=== PATIENT | male | born 1965 | race Caucasian/White ===

== ENCOUNTER → 2020-07-03 | Outpatient (CLI) | payer BC, OTHER ==
[~2020-07-03] MED LIST: LIDOCAINE 1% INJ 20 ML 20 ML VIAL INJ ONE; LIDOCAINE 1% INJ 20 ML 20 ML VIAL ONE
--- NOTE | 2020-07-03 12:15 | Diagnostic Imaging Report ---
INDICATION: Right lobe thyroid mass. Patient presents for ultrasound guided fine needle aspiration and biopsy. DETAILS OF THE PROCEDURE: The patient was brought to the procedure room and placed on the table in the supine position. Ultrasound imaging of the right neck was performed to evaluate for an appropriate entry site. The right neck was then prepped and draped in the usual sterile fashion. A small amount of 1% lidocaine was utilized for local anesthesia. A total of 4 passes was made into the hypoechoic mass in the inferior right lobe of the liver utilizing 25-gauge needles and fine-needle aspiration technique. A single pass was made with a Rotex needle and a Rotex biopsy was performed. The patient tolerated the procedure well and left the Department in stable condition. IMPRESSION: Successful ultrasound-guided right thyroid mass fine needle aspiration and Rotex biopsy. Pathology results are currently pending. Dictated by: Dictated on workstation # [id number]
== END ==
LOC: RAD 11:00
PROVIDERS: ATTEND Otolaryngology Otolaryngology/Facial Plastic Surgery
DX: E07.89 Other specified disorders of thyroid (principal)

== ENCOUNTER 2021-05-05 12:57 | Inpatient (IN) | payer OTHER ==
[~2021-05-05] VITALS: Ht 185.4 cm; Wt 155.1 kg
[2021-05-05] VITALS (13 sets, daily range): BP systolic 111–145; BP diastolic 57–87
--- NOTE | 2021-05-05 13:29 | ED Integumentary General ---
General Chief Complaint: Skin/Wound Problems Stated Complaint: GROIN ABCESS Source: patient Exam Limitations: no limitations History of Present Illness Date Seen by Provider: May 05, 2021 Time Seen by Provider: 13:20 Initial Comments Patient is a 56-year old male who presents to the emergency department with a chief complaint of abscess/infection to his scrotum. Patient states he first noticed the area of abscess on Wednesday, 4 days ago. Patient states he went to the emergency department in [facility]. He states the wound was draining at that time, a culture was obtained and he was placed on Bactrim. Patient states he was unable to fill the antibiotic prescription until yesterday and he has had 2 doses prior to today. He complains of "8 out of 10" pain. He is a diabetic on insulin. History of noncompliance. Patient presents with paperwork that shows his hemoglobin A1c is 12. Complains of some lower abdominal discomfort. Mild nausea without vomiting. No urinary complaints no GI complaints. Patient states he followed up with his primary care physician today in [place], was sent back to the ER where they advised him to come to [place] for definitive care of this abscess and infection. All other review of systems reviewed and negative except as stated. Timing/Duration: other (4d) Severity: moderate Location: genitalia Associated Symptoms: flushing, other (Diaphoresis, lower abdominal and groin pain) Allergies and Home Medications Allergies Coded Allergies: No Known Drug Allergies (Unverified , 07/03/20) Patient Home Medication List Home Medication List Reviewed: Yes Review of Systems Review of Systems Constitutional: see HPI, diaphoresis EENTM: no symptoms reported Respiratory: short of breath Cardiovascular: no symptoms reported Gastrointestinal: abdominal pain, nausea Genitourinary: other (Scrotal pain) Musculoskeletal: no symptoms reported Skin: other (Abscess left groin) Psychiatric/Neurological: No Symptoms Reported All Other Systems Reviewed Negative Unless Noted: Yes Past Wqgsatr-Kzgbsj-Srplye Hx Patient Social History Tobacco Use?: Yes Tobacco type used: Cigarettes Smoking Status: Current Everyday Smoker Use of E-Cig and/or Vaping dev: No Substance use?: Yes Substance type: Methamphetamine, Marijuana Substance frequency: Once in a while Alcohol Use?: Yes Alcohol type: Hard Liquor Alcohol Frequency: Once in a while Pt feels they are or have been: No Immunizations Up To Date Influenza Vaccine Up-to-Date: No; Not Current Second COVID19 Vaccination Renzo: 04/22 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: [employer] Physical Exam Vital Signs Vital Signs - First Documented 05/05/21 13:05 Temp 37.0 Pulse 104 Resp 24 B/P (MAP) 173/79 (110) Pulse Ox 98 O2 Delivery Room Air Capillary Refill : General Appearance: WD/WN, moderate distress HEENT: other (Dry oral mucosa) Neck: normal inspection Cardiovascular: regular rate, rhythm Respiratory: lungs clear, normal breath sounds, no respiratory distress, no accessory muscle use Gastrointestinal: soft, abnormal bowel sounds (Hypoactive), tenderness (Diffuse lower abdominal tenderness without rebound or involuntary guarding) Extremities: normal range of motion, normal inspection, no pedal edema Neurologic/Psychiatric: alert Skin: diaphoresis, other (Patient has an area of "abscess" on the lateral aspect of the left scrotum ( about a quarter sized in diameter - no active drainage) significant surrounding erythema edema; edema extends to the perineum; very tender to palpation erythema extends into the proximal thigh) Skin Problem Character: abscess Progress/Results/Core Measures Results/Orders Lab Results Laboratory Tests Test 05/05/21 13:20 05/05/21 13:40 Range/Units Glucometer 393 H 70-110 MG/DL White Blood Count 11.5 H 4.3-11.0 10^3/uL Red Blood Count 5.41 4.30-5.52 10^6/uL Hemoglobin 16.1 13.3-17.7 g/dL Hematocrit 47 40-54 % Mean Corpuscular Volume 87 80-99 fL Mean Corpuscular Hemoglobin 30 25-34 pg Mean Corpuscular Hemoglobin Concent 34 32-36 g/dL Red Cell Distribution Width 12.8 10.0-14.5 % Platelet Count 202 130-400 10^3/uL Mean Platelet Volume 10.8 9.0-12.2 fL Immature Granulocyte % (Auto) 1 % Neutrophils (%) (Auto) 78 H 42-75 % Lymphocytes (%) (Auto) 11 L 12-44 % Monocytes (%) (Auto) 9 0-12 % Eosinophils (%) (Auto) 2 0-10 % Basophils (%) (Auto) 0 0-10 % Neutrophils # (Auto) 9.0 H 1.8-7.8 10^3/uL Lymphocytes # (Auto) 1.2 1.0-4.0 10^3/uL Monocytes # (Auto) 1.0 0.0-1.0 10^3/uL Eosinophils # (Auto) 0.2 0.0-0.3 10^3/uL Basophils # (Auto) 0.1 0.0-0.1 10^3/uL Immature Granulocyte # (Auto) 0.1 0.0-0.1 10^3/uL Prothrombin Time 12.9 12.2-14.7 SEC INR Comment 0.9 0.8-1.4 Activated Partial Thromboplast Time 24 24-35 SEC Sodium Level 131 L 135-145 MMOL/L Potassium Level 3.6 3.6-5.0 MMOL/L Chloride Level 95 L 98-107 MMOL/L Carbon Dioxide Level 23 21-32 MMOL/L Anion Gap 13 5-14 MMOL/L Blood Urea Nitrogen 23 H 7-18 MG/DL Creatinine 1.33 H 0.60-1.30 MG/DL Estimat Glomerular Filtration Rate 56 BUN/Creatinine Ratio 17 Glucose Level 425 *H 70-105 MG/DL Lactic Acid Level 2.02 *H 0.50-2.00 MMOL/L Calcium Level 9.6 8.5-10.1 MG/DL Corrected Calcium 9.7 8.5-10.1 MG/DL Total Bilirubin 0.3 0.1-1.0 MG/DL Aspartate Amino Transf (AST/SGOT) 12 5-34 U/L Alanine Aminotransferase (ALT/SGPT) 19 0-55 U/L Alkaline Phosphatase 211 H 40-136 U/L Total Protein 7.6 6.4-8.2 GM/DL Albumin 3.9 3.2-4.5 GM/DL Micro Results Microbiology 05/05/21 Blood Culture - Preliminary, Resulted No growth 05/05/21 Blood Culture - Preliminary, Resulted No growth My Orders Orders - JOSH URIAS MD Cbc With Automated Diff (05/05/21 13:26) Comprehensive Metabolic Panel (05/05/21 13:26) Blood Culture (05/05/21 13:26) Urinalysis (05/05/21 13:26) Protime With Inr (05/05/21 13:26) Partial Thromboplastin Time (05/05/21 13:26) Chest 1 View, Ap/Pa Only (05/05/21 13:26) Ed Iv/Invasive Line Start (05/05/21 13:26) Ed Iv/Invasive Line Start (05/05/21 13:26) Vital Signs Adult Sepsis Patie Q15M (05/05/21 13:26) O2 (05/05/21 13:26) Remove Rings In Anticipation O (05/05/21 13:26) Lactic Acid Analyzer (05/05/21 13:26) Ns Iv 1000 Ml (Sodium Chloride 0.9%) (05/05/21 13:30) Vancomycin Injection (Vancomycin Injecti (05/05/21 13:45) Clindamycin 600 Mg/50 Ml Ivpb (Cleocin P (05/05/21 13:45) Fentanyl Inj (Sublimaze Injection) (05/05/21 13:45) Type And Screen (05/05/21 13:43) Platelet Pheresis Lr (05/05/21 13:43) Medications Given in ED Vital Signs/I&O 05/05/21 13:05 Temp 37.0 Pulse 104 Resp 24 B/P (MAP) 173/79 (110) Pulse Ox 98 O2 Delivery Room Air Progress Progress Note : Time: 13:35 Progress Note DIscussed with Dr Silver, will be down to see 1351 prepping patient for the OR. asked for 1u platelets (secondary to plavix); NPO status - a bottle of water on the drive down to here from [place]. 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 Referrals: YANNI GAMING MD (PCP/Family) Primary Care Physician JOSH URIAS MD May 05, 2021 13:29
[2021-05-05] MEDS ORDERED: NS IV 1000 ML 1,000 ML IV SCH (13:30)
[2021-05-05] MEDS ORDERED: fentaNYL INJ 100 MCG/2 ML AMP IVP ONE ×2 (13:45→16:15)
[2021-05-05] MEDS ORDERED: VANCOMYCIN INJECTION 1,000 MG in NS (IVPB) 250 ML IV ONE (13:45)
[2021-05-05] MEDS ORDERED: CLINDAMYCIN 600 MG/50 ML IVPB 50 ML IV ONE (13:45)
--- NOTE | 2021-05-05 13:57 | History & Physical-Surgical ---
MELODYKEISHABENJAMÍN A MED STUDENT 05/05/21 1357: History of Present Illness History of Present Illness Reason for visit/HPI 56 yo male who presented to ED for left groin swelling for the last few days. Pt was seen in ED last week and told to f/u with PCP this morning. PCP advised pt to go to ED this morning. Pt reports left groin/scrotal swelling and pain with abdominal pain as well. Pt has hx of diabetes, HTN, stroke with anticoagulant use and meth/marjiuana abuse. Pt last used drugs yesterday. Date of Admission Date Seen by a Provider: May 05, 2021 Time Seen by a Provider: 13:45 I consulted on this patient on 05/05/21 13:49 Attending Physician Admitting Physician Luis Eduardo Bragg MD Consult Allergies and Home Medications Allergies Coded Allergies: No Known Drug Allergies (Unverified , 07/03/20) Past Flukzgf-Hzlgvq-Xmgtga Hx Patient Social History Tobacco Use?: Yes Tobacco type used: Cigarettes Smoking Status: Current Everyday Smoker Use of E-Cig and/or Vaping dev: No Substance use?: Yes Substance type: Methamphetamine, Marijuana Substance frequency: Once in a while Alcohol Use?: Yes Alcohol type: Hard Liquor Alcohol Frequency: Once in a while Pt feels they are or have been: No Immunizations Up To Date Second COVID19 Vaccination Renzo: 04/22 Tetanus Booster (TDap): Unknown Current Status Advance Directives: No Primary Language: Bahamian Preferred Spoken Language: Bahamian Implanted or Applied Medical D: None Review of Systems Gastrointestinal: abdominal pain Skin: change in color (erythema/edema of left scrotum) Physical Exam Vital Signs Vital Signs - First Documented 05/05/21 13:05 Temp 37.0 Pulse 104 Resp 24 B/P (MAP) 173/79 (110) Pulse Ox 98 O2 Delivery Room Air Capillary Refill : Less Than 3 Seconds Height, Weight, BMI Height: '" Weight: lbs. oz. kg; 43.00 BMI Method: General Appearance: Moderate Distress HEENT: PERRL/EOMI Gastrointestinal: Tenderness Genital/Rectal: Other (erythema and edema of scrotum with ulceration on left scrotal region) Neurologic/Psychiatric: Alert, Oriented x3, No Motor/Sensory Deficits, Normal Mood/Affect, sisal operator II-XII Norm as Tested Skin: Diaphoresis Data Review Labs Laboratory Tests 05/05/21 13:20: Glucometer 393H 05/05/21 13:40: White Blood Count 11.5H, Red Blood Count 5.41, Hemoglobin 16.1, Hematocrit 47, Mean Corpuscular Volume 87, Mean Corpuscular Hemoglobin 30, Mean Corpuscular Hemoglobin Concent 34, Red Cell Distribution Width 12.8, Platelet Count 202, Mean Platelet Volume 10.8, Immature Granulocyte % (Auto) 1, Neutrophils (%) (Auto) 78H, Lymphocytes (%) (Auto) 11L, Monocytes (%) (Auto) 9, Eosinophils (%) (Auto) 2, Basophils (%) (Auto) 0, Neutrophils # (Auto) 9.0H, Lymphocytes # (Auto) 1.2, Monocytes # (Auto) 1.0, Eosinophils # (Auto) 0.2, Basophils # (Auto) 0.1, Immature Granulocyte # (Auto) 0.1, Prothrombin Time 12.9, INR Comment 0.9, Activated Partial Thromboplast Time 24, Sodium Level 131L, Potassium Level 3.6, Chloride Level 95L, Carbon Dioxide Level 23, Anion Gap 13, Blood Urea Nitrogen 23H, Creatinine 1.33H, Estimat Glomerular Filtration Rate 56, BUN/Creatinine Ratio 17, Glucose Level 425*H, Lactic Acid Level 2.02*H, Calcium Level 9.6, Corrected Calcium 9.7, Total Bilirubin 0.3, Aspartate Amino Transf (AST/SGOT) 12, Alanine Aminotransferase (ALT/SGPT) 19, Alkaline Phosphatase 211H, Total Protein 7.6, Albumin 3.9 Assessment/Plan Assessment/Plan Admission Diagonsis Juanjo Gangrene Reason for Inpatient Admission: Juanjo Gangrene Assessment/Plan Juanjo Gangrene Hx of stroke with anticoagulation HTN Diabetes Juanjo's Gangrene of Left Scrotum -Will take to OR for debridement and all other indicated procedures Hx of stroke with anticoagulation therapy -Platelets ordered by ED physician HTN -Will monitor with help of hospitalist, appreciate their assistance Diabetes -Will monitor with help of hospitalist, appreciate their assistance Methamphetamine and Marijuana abuse Obesity Discussed urgency of this matter with pt and he consented to procedure PHILIP SILVER DO 05/05/211911: History of Present Illness History of Present Illness Reason for visit/HPI Chief complaint left groin pain/abscess Patient is a 56-year-old male who presented to the [place] emergency department on Wednesday for evaluation of a left groin abscess. At that time he states he was given prescription for antibiotics but he did not start taking them till yesterday. He was told to follow-up with his primary care doctor. He followed up with his primary care doctor today who informed patient to go to the emergency department in [place] for further evaluation. Patient having moderate to severe pain in the left groin area. Patient states nothing was ma russel it better. Time was making it worse. Patient states he had increased redness and swelling. Patient is diabetic which he states he has not had control of his blood sugars recently. Patient states that his birthday was yesterday and was using marijuana and meth. He has a history of a stroke which she is on Plavix for. Patient is diaphoretic not feeling well he denies any n ausea vomiting fever chills shortness of breath or chest pain at this time. Allergies and Home Medications Allergies Coded Allergies: No Known Drug Allergies (Unverified , 07/03/20) Patient Home Medication List Home Medication List Reviewed: Yes Past Ckmtour-Zieydh-Atypab Hx Past Medical History Surgeries: Orthopedic Hypertension Stroke Diabetes, Non-Insulin dep Review of Systems Constitutional: No chills; diaphoresis EENTM: No blurred vision, No double vision Respiratory: No cough, No dyspnea on exertion Gastrointestinal: abdominal pain (Left groin); No nausea, No vomiting Genitourinary: No discharge; pain (Left groin) Musculoskeletal: No back pain, No joint pain Skin: change in color (erythema/edema of left scrotum and into left groin), lumps Psychiatric/Neurological: Denies Anxiety, Denies Depressed, Denies Emotional P roblems All Other Systems Reviewed Negative Unless Noted: Yes (Negative excepted noted.) Physical Exam General Appearance: Mild Distress HEENT: PERRL/EOMI, Normal ENT Inspection Neck: Non Tender, Supple Respiratory: Chest Non Tender, No Accessory Muscle Use, No Respiratory Distress Cardiovascular: No JVD, Tachycardia Gastrointestinal: Non Tender, Soft, Tenderness (Left groin) Rectal: Deferred Genital/Rectal: Other (erythema and edema of scrotum with ulceration on left groin region and patient with significant induration in this area some fl uctuance) Back: No CVA Tenderness, No Vertebral Tenderness Extremity: Normal Inspection, Non Tender Neurologic/Psychiatric: Oriented x3, No Motor/Sensory Deficits, Normal Mood/Affect, sisal operator II-XII Norm as Tested Skin: Warm/Dry, Diaphoresis Lymphatic: No Adenopathy Assessment/Plan Assessment/Plan Admission Diagonsis Juanjo gangrene left groin Diabetes Hypertension Methamphetamine and marijuana use History of stroke on antiplatelet Admission Status: Inpatient Order (span 2 midnights) Reason for Inpatient Admission: Patient will need surgical intervention continued IV antibiotics and continued monitoring which will be a span of greater than 2 midnights. Assessment/Plan Juanjo gangrene left groin Diabetes Hypertension Methamphetamine and marijuana use History of stroke on antiplatelet Obesity Patient with suspected Juanjo's gangrene on physical exam. Patient n.p.o. and given IV fluids. Patient started on antibiotics will be on vancomycin Zosyn clindamycin and Flagyl Needs to be emergently debrided which patient understands risk and benefits of and wishes to proceed. Patient will need wound care postoperatively. Patient may need further surgical intervention if continues to have necrotic tissue or concerns for. Tight glucose control. Will consult the hospitalist service and tele-ICU postoperatively. Supervisory-Addendum Brief Verification & Attestation Participated in pt care: history, MDM, physical Personally performed: exam, history, MDM, supervision of care Care discussed with: Medical Student Procedures: n/a Results interpretation: Verified all documentation Verification and Attestation of Medical Student E/M Service A medical student performed and documented this service in my presence. I reviewed and verified all information documented by the medical student and made modifications to such information, when appropriate. I personally performed the physical exam and medical decision making. Philip Silver, May 05, 2021,13:59 BENJAMÍN SEARS MED STUDENT May 05, 2021 13:57 PHILIP SILVER DO May 05, 2021 19:12
[2021-05-05 13:58] LABS: BASOPHILS # (AUTO) 0.1 10^3/uL (0.0-0.1); BASOPHILS % (AUTO) 0 % (0-10); EOSINOPHILS # (AUTO) 0.2 10^3/uL (0.0-0.3); EOSINOPHILS % (AUTO) 2 % (0-10); HEMATOCRIT 47 % (40-54); HEMOGLOBIN 16.1 g/dL (13.3-17.7); LYMPHOCYTES # (AUTO) 1.2 10^3/uL (1.0-4.0); LYMPHOCYTES % (AUTO) 11 % (12-44); MEAN CORPUSCULAR HEMOGLOBIN 30 pg (25-34); MEAN CORPUSCULAR HGB CONC 34 g/dL (32-36); MEAN CORPUSCULAR VOLUME 87 fL (80-99); MEAN PLATELET VOLUME 10.8 fL (9.0-12.2); MONOCYTES % (AUTO) 9 % (0-12); NEUTROPHILS % (AUTO) 78 % (42-75); PLATELET COUNT 202 10^3/uL (130-400); WHITE BLOOD COUNT 11.5 10^3/uL (4.3-11.0)
[2021-05-05] MEDS ORDERED: LACTATED RINGERS 1,000 ML IV PRN (14:00)
[2021-05-05 14:10] LABS: ALBUMIN 3.9 GM/DL (3.2-4.5); POTASSIUM 3.6 MMOL/L (3.6-5.0)
[2021-05-05 14:11] LABS: CALCIUM 9.6 MG/DL (8.5-10.1); INR 0.9 (0.8-1.4); PROTHROMBIN TIME PATIENT 12.9 SEC (12.2-14.7)
[2021-05-05 14:12] LABS: TOTAL PROTEIN 7.6 GM/DL (6.4-8.2)
[2021-05-05 14:14] LABS: BILIRUBIN,TOTAL 0.3 MG/DL (0.1-1.0)
[2021-05-05 14:16] LABS: CREATININE SERUM 1.33 MG/DL (0.60-1.30)
[2021-05-05] MEDS ORDERED: LIDOCAINE PF 2% 5 ML (XYLOCAINE) VIAL ONE (14:17)
[2021-05-05] MEDS ORDERED: ROCURONIUM 10 MG/ML 5 ML SYRINGE IV ONE (14:17)
[2021-05-05] MEDS ORDERED: fentaNYL INJ 100 MCG/2 ML AMP ONE ×2 (14:17→15:42)
[2021-05-05] MEDS ORDERED: ONDANSETRON 4 MG/2 ML (SDV) Z0FRAN ONE (14:17)
[2021-05-05] MEDS ORDERED: NEOSTIGMINE 3 MG/3 ML VIAL ONE (14:17)
[2021-05-05] MEDS ORDERED: GLYCOPYRROLATE 0.2 MG/ML (ROBINUL) 2 ML VIAL ONE (14:17)
[2021-05-05] MEDS ORDERED: proPOfol 200 MG/20 ML (DIPRIVAN) VIAL IV ONE (14:17)
[2021-05-05] MEDS ORDERED: MIDAZOLAM 2 MG/2 ML (VERSED) VIAL ONE (14:18)
[2021-05-05] MEDS ORDERED: LIDOCAINE/EPI 1%-1:100,000 (XYLOCAINE) 20ML ONE (14:18)
[2021-05-05] MEDS ORDERED: SUCCINYLCHOLINE INJ 100 MG/5 ML SYR/VIAL ONE (14:23)
--- NOTE | 2021-05-05 14:33 | Diagnostic Imaging Report ---
EXAMINATION: Chest, one view. HISTORY: Sepsis. Groin abscess. COMPARISON: 11/18/2019. FINDINGS: The lung volumes are normal. No focal consolidation is seen. No large pleural effusion or pneumothorax is seen. The cardiomediastinal silhouette is normal in size and contour. No acute osseous abnormality is seen. IMPRESSION: 1. No acute pleural-parenchymal process. Dictated by: Dictated on workstation # [id number]
[2021-05-05] MEDS ORDERED: VANCOMYCIN INJECTION 0.1 MG in NS (IVPB) 250 ML IV SCH (16:00)
[2021-05-05] MEDS ORDERED: PIPERACILLIN/TAZOBACTAM (BULK) 4.5 GM in NS (IVPB) 100 ML IV SCH (16:00)
[2021-05-05] MEDS ORDERED: MEPERIDINE (DEMEROL) INJ 50 MG/ML IVP ONE (16:15)
[2021-05-05] MEDS ORDERED: ONDANSETRON 4 MG/2 ML (SDV) Z0FRAN IVP PRN (16:15)
[2021-05-05] MEDS: LACTATED RINGERS 1,000 ML IV SCH (16:32)
[2021-05-05] MEDS ORDERED: PIPERACILLIN/TAZO 4.5 GM/NS 100 ML IV NR ×2 (17:30)
[2021-05-05] MEDS ORDERED: VANCOMYCIN 1 GM/NS 250 ML IVPB IV NR ×2 (17:30)
[2021-05-05] MEDS ORDERED: inSUlin ASPART (NovoLOG) 1 UNIT/0.01 ML (CHARGE PER UNIT) ONE (18:15)
[2021-05-05] MEDS: inSUlin ASPART (NovoLOG) 1 UNIT/0.01 ML (CHARGE PER UNIT) SC SCH ×2 (18:18→20:10)
--- NOTE | 2021-05-05 18:47 | Tele-ICU Consult ---
History of Present Illness History of Present Illness Date Seen by Provider: May 05, 2021 Time Seen by Provider: 17:30 Date of Admission Allergies and Home Medications Allergies Coded Allergies: No Known Drug Allergies (Unverified , 07/03/20) Past Medical/Social/Family Hx Patient Social History Tobacco Use?: Yes Tobacco type used: Cigarettes Smoking Status: Current Everyday Smoker Use of E-Cig and/or Vaping dev: No E-Cig or Vaping type used: Marijuana Substance use?: Yes Substance type: Methamphetamine Substance frequency: Daily Alcohol Use?: Yes Alcohol type: Hard Liquor Alcohol Frequency: Couple times a week Pt stated abuse/neglect: No Immunizations Up To Date Influenza Vaccine Up-to-Date: Yes; Up-to-Date First/Initial COVID19 Vaccinat: 04/22 Second COVID19 Vaccination Renzo: 04/22 Tetanus Booster (TDap): Unknown Current Status Advance Directives: No Communicates: Verbally Primary Language: Sinhala Preferred Spoken Language: Sinhala Is interpretation needed?: No Implanted or Applied Medical D: None Review of Systems Constitutional: see HPI Sepsis Event Evaluation Height, Weight, BMI Height: '" Weight: lbs. oz. kg; 43.52 BMI Method: Exam Exam Patient acknowledged, consented, and participated in this virtual visit which was conducted using real time audio/video Vital Signs Date Time Temp Pulse Resp B/P (MAP) Pulse Ox O2 Delivery O2 Flow Rate FiO2 05/05/21 18:00 95 22 130/78 (95) 94 Nasal Cannula 2.00 05/05/21 17:00 92 05/05/21 17:00 92 23 111/78 (89) 95 Nasal Cannula 2.00 05/05/21 16:40 OxyMask 2 05/05/21 16:40 36.3 18 135/80 (98) 93 OxyMask 2 05/05/21 16:32 OxyMask 2 05/05/21 16:30 18 124/87 (99) 96 OxyMask 2 05/05/21 16:27 OxyMask 2 05/05/21 16:25 OxyMask 2 05/05/21 16:20 OxyMask 2 05/05/21 16:20 18 125/73 (90) 94 OxyMask 2 05/05/21 16:16 OxyMask 4 05/05/21 16:10 OxyMask 6 05/05/21 16:10 18 132/75 (94) 94 OxyMask 6 05/05/21 16:07 18 121/79 (93) 94 OxyMask 6 05/05/21 15:58 36.6 16 113/80 (91) 97 OxyMask 6 05/05/21 15:58 OxyMask 6 05/05/21 14:41 102 24 131/84 98 Room Air 05/05/21 13:05 37.0 104 24 173/79 (110) 98 Room Air Height & Weight Height: '" Weight: lbs. oz. kg; 43.52 BMI Method: General Appearance: No Apparent Distress, Moderate Distress HEENT: PERRL/EOMI Capillary Refill: Less Than 3 Seconds Gastrointestinal: soft, abnormal bowel sounds (Hypoactive), tenderness (Diffuse lower abdominal tenderness without rebound or involuntary guarding) Neurologic/Psychiatric: Alert, Oriented x3, No Motor/Sensory Deficits, Normal Mood/Affect, muskrat trapper II-XII Norm as Tested Skin: Diaphoresis Results Lab Laboratory Tests 05/05/21 13:40 Assessment/Plan Assessment/Plan (Tele-ICU Physician , consultation) Available chart/ vitals / labs / Images reviewed H&P is from ER notes Patient's information available about PMH, Shx, Fhx allergy reviewed in EMR. ROS as per chart and RN report Now in ICU, hemodynamically stable Video assessment done using teleICU camera, rest of exam as per RN Discussed with RN. Consultants: DONTE Hospital course: 05/05 - ER: abscess/infection to his scrotum. --> s/p I& D left groin A/P Juanjo Gangrene - - report pending - cont zosyn - pain control Acute resp failure - hypoxia post op with low TV - will initiate IS and CPAP at night DM II , poorly controlled , as per records -hemoglobin A1c is 12. - ISS for now JANA - CPAP at home , noncompliant - will be beneficial at night h/o CVA - plavix on hold , PLT transfused Lines : peroph (Central Line Necessity Reviewed) Cutler: OG: Nutrition: Analgesia: Anxiety/ delirium VTE Prophylaxis: SCD Stress Ulcer Prophylaxis: Po Plans in collaboration with bedside consultants and IM MDs. Discussed with RN to reach out if any questions or concerns A total of 35 minutes of critical care time was devoted to this patient today, required to treat and/or prevent further deterioration of critical care co ndition ( as above ) . ERASMO ROJAS MD May 05, 2021 18:47
--- NOTE | 2021-05-05 20:31 | Progress Note-Post Operative ---
Post-Operative Progess Note Surgeon (s)/Sports Equipment Supervisor (s) Surgeon PHILIP OROZCO DO Sports Equipment Supervisor: na Pre-Operative Diagnosis Juanjo gangrene left groin Post-Operative Diagnosis Same Procedure & Operative Findings Date of Procedure 05/05/21 Procedure Performed/Findings Debridement left groin juanjo gangrene skin and subcutaneous tissue and muscle sharp and cautery dissection 9x3.5.4.5cm Anesthesia Type general Estimated Blood Loss Estimated blood loss (mL): minimal Specimens/Packing Specimens Removed culture PHILIP OROZCO DO May 05, 2021 20:31
[2021-05-05] MEDS ORDERED: inSUlin ASPART (NovoLOG) 1 UNIT/0.01 ML (CHARGE PER UNIT) SC SCH (21:00)
--- NOTE | 2021-05-05 22:36 | OPERATIVE REPORT ---
DATE OF SERVICE: 05/05/2021 PREOPERATIVE DIAGNOSIS: Juanjo's gangrene, left groin. POSTOPERATIVE DIAGNOSIS: Juanjo's gangrene, left groin. PROCEDURE: Debridement left groin Juanjo's gangrene skin, subcutaneous tissue and muscle with sharp and cautery dissection. Overall, dimensions 9 x 3.5 x 4.5 cm. SURGEON: Federico Silver DO ANESTHESIA: General. ESTIMATED BLOOD LOSS: Minimal. COMPLICATIONS: None. INDICATIONS: The patient is a 56-year-old male who had an area to the left groin that he seeks evaluation in the Emergency Department last Wednesday. He was started on antibiotics at that time; however, did start until yesterday and he had followup with his primary care doctor today for reevaluation. The patient was told to go to the Emergency Department today after being evaluated. The patient on examination appears to have Juanjo's gangrene and was explained risks and benefits of procedure and wishes to proceed. Consent was signed in the chart. DESCRIPTION OF PROCEDURE: The patient was taken to the operating suite, placed in lithotomy position, prepped and draped in sterile fashion. Timeout was performed. A 15 blade scalpel was used to excise the necrotic skin area and some air started to erupt from this area along with some grayish slightly purulent-appearing material. Culture was obtained. Finger dissection was then used to bluntly dissect through the plane of tissue and the skin and subcutaneous tissues and some muscles were debrided. All loculations were being broken up. Any necrotic appearing tissue was excised. This extended in the left groin near the scrotum all the way up towards the left groin. Once all ischemic appearing tissue had been removed. The wound was then irrigated with copious amounts of irrigation. Hemostasis was achieved. The wound was then packed with Betadine soaked Kerlix and the area was washed and dried and sterile bandage was applied. The patient tolerated procedure well without any complications, taken to recovery room in stable condition. RECOMMENDATIONS: The patient will be continually monitored and may need further excision that process continues to advance. CC: Dr. Bragg - requested, unable to deliver. Job ID: [id number] DocumentID: [id number] Dictated Date: 05/05/2021 20:36:03 Bird Trapper Date: 05/05/2021 22:35:13 Dictated By: FEDERICO SILVER DO
[2021-05-05] MEDS: CLINDAMYCIN 900 MG/50 ML IVPB 50 ML IV SCH (23:28)
[2021-05-05] MEDS: PIPERACILLIN/TAZO 4.5 GM/NS 100 ML IV SCH ×2 (23:55)
[2021-05-06] VITALS (24 sets, daily range): BP systolic 124–198; BP diastolic 58–112
[2021-05-06] MEDS: LACTATED RINGERS 1,000 ML IV SCH ×2 (02:49→10:07)
[2021-05-06 04:41] LABS: BASOPHILS # (AUTO) 0.1 10^3/uL (0.0-0.1); BASOPHILS % (AUTO) 1 % (0-10); EOSINOPHILS # (AUTO) 0.2 10^3/uL (0.0-0.3); EOSINOPHILS % (AUTO) 2 % (0-10); HEMATOCRIT 43 % (40-54); HEMOGLOBIN 14.2 g/dL (13.3-17.7); LYMPHOCYTES # (AUTO) 0.9 10^3/uL (1.0-4.0); LYMPHOCYTES % (AUTO) 9 % (12-44); MEAN CORPUSCULAR HEMOGLOBIN 29 pg (25-34); MEAN CORPUSCULAR HGB CONC 33 g/dL (32-36); MEAN CORPUSCULAR VOLUME 89 fL (80-99); MEAN PLATELET VOLUME 10.5 fL (9.0-12.2); MONOCYTES # (AUTO) 0.9 10^3/uL (0.0-1.0); MONOCYTES % (AUTO) 8 % (0-12); NEUTROPHILS # (AUTO) 8.6 10^3/uL (1.8-7.8); NEUTROPHILS % (AUTO) 80 % (42-75); PLATELET COUNT 198 10^3/uL (130-400); WHITE BLOOD COUNT 10.7 10^3/uL (4.3-11.0)
[2021-05-06 04:52] LABS: ALBUMIN 3.3 GM/DL (3.2-4.5); POTASSIUM 3.7 MMOL/L (3.6-5.0)
[2021-05-06 04:54] LABS: CALCIUM 8.6 MG/DL (8.5-10.1)
[2021-05-06 04:55] LABS: TOTAL PROTEIN 6.3 GM/DL (6.4-8.2)
[2021-05-06 04:57] LABS: BILIRUBIN,TOTAL 0.4 MG/DL (0.1-1.0)
[2021-05-06 04:58] LABS: PHOSPHORUS 3.1 MG/DL (2.3-4.7)
[2021-05-06 04:59] LABS: CREATININE SERUM 0.83 MG/DL (0.60-1.30)
[2021-05-06 05:01] LABS: MAGNESIUM 1.8 MG/DL (1.6-2.4)
[2021-05-06] MEDS: MAGNESIUM 1 GM/100 ML IVPB 100 ML IV SCH (05:25)
[2021-05-06] MEDS: KCL 20 MEQ TAB (K-DUR) PO SCH (05:25)
[2021-05-06] MEDS: POTASSIUM CL 10MEQ/50ML IVPB 50 ML IV SCH (05:25)
[2021-05-06] MEDS: inSUlin ASPART (NovoLOG) 1 UNIT/0.01 ML (CHARGE PER UNIT) SC SCH ×4 (05:25→22:16)
[2021-05-06] MEDS: CLINDAMYCIN 900 MG/50 ML IVPB 50 ML IV SCH ×3 (05:58→22:19)
[2021-05-06] MEDS: VANCOMYCIN 2000 MG/NS 500 ML IVPB IV SCH ×4 (05:58→17:11)
--- NOTE | 2021-05-06 07:43 | Progress Note - Surgery ---
BENJAMÍN SEARS A MED STUDENT 05/06/21 0743: Subjective Date Seen by a Provider: May 06, 2021 Time Seen by a Provider: 07:20 Subjective/Events-last exam Pt was asleep in bed this morning, but easy to wake. Pt reports he feels better than yesterday and denies any pain. Pt complains of some lower leg cramps and requests ice water. Denies fever, chills, SOA, chest pain or dysuria. Review of Systems General: No Chills, No Fatigue Pulmonary: No Dyspnea, No Cough Cardiovascular: No: Chest Pain, Palpitations Gastrointestinal: No: Nausea, Vomiting, Abdominal Pain, Diarrhea, Constipation Genitourinary: No Dysuria, No Frequency Neurological: No: Weakness, Numbness Focused Exam Lactate Level 05/05/21 13:40: Lactic Acid Level 2.02*H 05/05/21 17:25: Lactic Acid Level 1.39 Objective Exam Vital Signs Date Time Temp Pulse Resp B/P (MAP) Pulse Ox O2 Delivery O2 Flow Rate FiO2 05/06/21 06:00 98 16 179/92 (121) 94 Nasal Cannula 2.00 05/06/21 05:00 99 17 134/58 (83) 97 Nasal Cannula 2.00 05/06/21 04:43 36.4 05/06/21 04:00 97 Nasal Cannula 2.00 05/06/21 04:00 92 15 124/67 (86) 96 Nasal Cannula 2.00 05/06/21 03:00 93 17 158/79 (105) 94 Nasal Cannula 2.00 05/06/21 02:00 96 17 140/78 (98) 94 Nasal Cannula 2.00 05/06/21 01:00 97 05/06/21 01:00 97 16 158/76 (103) 96 Nasal Cannula 2.00 05/06/21 00:01 36.8 05/06/21 00:00 95 18 136/85 (102) 97 Nasal Cannula 2.00 05/05/21 23:59 97 Nasal Cannula 2.00 05/05/21 23:00 94 19 133/69 (90) 94 Nasal Cannula 2.00 05/05/21 22:00 92 18 145/69 (94) 95 Nasal Cannula 2.00 05/05/21 21:00 97 14 141/67 (91) 92 Nasal Cannula 2.00 05/05/21 20:33 37.1 05/05/21 20:02 36.6 05/05/21 20:00 96 20 133/57 (82) 96 Nasal Cannula 2.00 05/05/21 20:00 97 Nasal Cannula 2.00 05/05/21 19:00 98 13 133/68 (89) 95 Nasal Cannula 2.00 05/05/21 19:00 98 05/05/21 18:00 95 22 130/78 (95) 94 Nasal Cannula 2.00 05/05/21 17:00 92 05/05/21 17:00 92 23 111/78 (89) 95 Nasal Cannula 2.00 05/05/21 16:45 92 Nasal Cannula 2.00 05/05/21 16:40 OxyMask 2 05/05/21 16:40 36.3 18 135/80 (98) 93 OxyMask 2 05/05/21 16:32 OxyMask 2 05/05/21 16:30 18 124/87 (99) 96 OxyMask 2 05/05/21 16:27 OxyMask 2 05/05/21 16:25 OxyMask 2 05/05/21 16:20 OxyMask 2 05/05/21 16:20 18 125/73 (90) 94 OxyMask 2 05/05/21 16:16 OxyMask 4 05/05/21 16:10 OxyMask 6 05/05/21 16:10 18 132/75 (94) 94 OxyMask 6 05/05/21 16:07 18 121/79 (93) 94 OxyMask 6 05/05/21 15:58 36.6 16 113/80 (91) 97 OxyMask 6 05/05/21 15:58 OxyMask 6 05/05/21 14:41 102 24 131/84 98 Room Air 05/05/21 13:05 37.0 104 24 173/79 (110) 98 Room Air I & O 05/06/21 07:00 Intake Total 870 ml Output Total 2000 ml Balance -1130 ml Capillary Refill : Less Than 3 Seconds General Appearance: No Apparent Distress, WD/WN HEENT: PERRL/EOMI, Normal ENT Inspection Neck: Non Tender, Supple Respiratory: Chest Non Tender, Lungs Clear, Normal Breath Sounds, No Accessory Muscle Use, No Respiratory Distress Cardiovascular: Regular Rate, Rhythm, No Edema, No JVD, Normal Peripheral Pulses Gastrointestinal: normal bowel sounds, non tender, soft Extremity: Normal Inspection, Non Tender Neurologic/Psychiatric: Alert, Oriented x3, No Motor/Sensory Deficits, Normal 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, 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 as 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 Skin: Normal Color, Warm/Dry, Other (scrotal erythema) Lymphatic: No Adenopathy Results Lab Laboratory Tests 05/05/21 13:20: Glucometer 393H 05/05/21 13:40: White Blood Count 11.5H, Red Blood Count 5.41, Hemoglobin 16.1, Hematocrit 47, Mean Corpuscular Volume 87, Mean Corpuscular Hemoglobin 30, Mean Corpuscular Hemoglobin Concent 34, Red Cell Distribution Width 12.8, Platelet Count 202, Mean Platelet Volume 10.8, Immature Granulocyte % (Auto) 1, Neutrophils (%) (Auto) 78H, Lymphocytes (%) (Auto) 11L, Monocytes (%) (Auto) 9, Eosinophils (%) (Auto) 2, Basophils (%) (Auto) 0, Neutrophils # (Auto) 9.0H, Lymphocytes # (Auto) 1.2, Monocytes # (Auto) 1.0, Eosinophils # (Auto) 0.2, Basophils # (Auto) 0.1, Immature Granulocyte # (Auto) 0.1, Prothrombin Time 12.9, INR Comment 0.9, Activated Partial Thromboplast Time 24, Sodium Level 131L, Potassium Level 3.6, Chloride Level 95L, Carbon Dioxide Level 23, Anion Gap 13, Blood Urea Nitrogen 23H, Creatinine 1.33H, Estimat Glomerular Filtration Rate 56, BUN/Creatinine Ratio 17, Glucose Level 425*H, Lactic Acid Level 2.02*H, Calcium Level 9.6, C orrected Calcium 9.7, Total Bilirubin 0.3, Aspartate Amino Transf (AST/SGOT) 12, Alanine Aminotransferase (ALT/SGPT) 19, Alkaline Phosphatase 211H, Total Protein 7.6, Albumin 3.9 05/05/21 17:00: Glucometer 357H 05/05/21 17:25: Lactic Acid Level 1.39 05/05/21 20:05: Glucometer 343H 05/06/21 04:30: White Blood Count 10.7, Red Blood Count 4.86, Hemoglobin 14.2, Hematocrit 43, Mean Corpuscular Volume 89, Mean Corpuscular Hemoglobin 29, Mean Corpuscular Hemoglobin Concent 33, Red Cell Distribution Width 12.8, Platelet Count 198, Mean Platelet Volume 10.5, Immature Granulocyte % (Auto) 1, Neutrophils (%) (Auto) 80H, Lymphocytes (%) (Auto) 9L, Monocytes (%) (Auto) 8, Eosinophils (%) (Auto) 2, Basophils (%) (Auto) 1, Neutrophils # (Auto) 8.6H, Lymphocytes # (A uto) 0.9L, Monocytes # (Auto) 0.9, Eosinophils # (Auto) 0.2, Basophils # (Auto) 0.1, Immature Granulocyte # (Auto) 0.1, Sodium Level 138, Potassium Level 3.7, Chloride Level 105, Carbon Dioxide Level 22, Anion Gap 11, Blood Urea Nitrogen 15, Creatinine 0.83, Estimat Glomerular Filtration Rate 96, BUN/Creatinine Ratio 18, Glucose Level 168H, Calcium Level 8.6, Corrected Calcium 9.2, Phosphorus Level 3.1, Magnesium Level 1.8, Total Bilirubin 0.4, Aspartate Amino Transf (AST/SGOT) 15, Alanine Aminotransferase (ALT/SGPT) 19, Alkaline Phosphatase 135, Total Protein 6.3L, Albumin 3.3 Microbiology 05/05/21 Gram Stain - Final, Resulted 05/05/21 Anaerobic Culture, Resulted Pending 05/05/21 Surgical Culture - Preliminary, Resulted Strep, Beta Hemolytic Group B 05/05/21 Fungal Culture 1, Resulted Pending Assessment/Plan Assessment/Plan Admission Diagonsis Juanjo gangrene Assessment/Plan Juanjo Gangrene Hx of stroke with anticoagulation HTN Diabetes Juanjo's Gangrene of Left Scrotum -Scrotal erythema and edema significantly improved from yesterday -Continue wound care -WBC trending down, currently 10.7 Hx of stroke with anticoagulation therapy -Platelets infused yesterday, count is 198 HTN -Will monitor with help of hospitalist, appreciate their assistance Diabetes -SSI, tight glucose control Tobacco, Methamphetamine and Marijuana abuse -Discussed importance of cessation Obesity FEDERICO SILVER DO 05/06/21 4132: Subjective Subjective/Events-last exam Feeling better today. Pain controlled. Swelling in scrotum decreased and wound no significant drainage. blood sugars not controlled. Occasional sweats. 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 Tested Skin: Normal Color, Warm/Dry, Other (scrotal erythema and edema less, left groin wound open, no significant drainage tissue pink) Lymphatic: No Adenopathy Assessment/Plan Assessment/Plan Assessment/Plan Juanjo Gangrene Hx of stroke with anticoagulation HTN Diabetes 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 -Scrotal erythema and edema significantly improved from yesterday -Continue wound care -WBC trending down, currently 10.7 -continue abx Hx of stroke with anticoagulation therapy -Platelets infused yesterday do to antiplatelet, plavix on hold HTN -Will monitor with help of hospitalist, appreciate their assistance Diabetes -SSI, tight glucose control Tobacco, Methamphetamine and Marijuana abuse -Discussed importance of cessation Obesity Supervisory-Addendum Brief Verification & Attestation Participated in pt care: history, MDM, physical Personally performed: exam, history, MDM, supervision of care Care discussed with: Medical Student Procedures: n/a Results interpretation: Verified all documentation Verification and Attestation of Medical Student E/M Service A medical student performed and documented this service in my presence. I revi ewed and verified all information documented by the medical student and made modifications to such information, when appropriate. I personally performed the physical exam and medical decision making. Federico Silver, May 06, 2021,13:23 BENJAMÍN SEARS MED STUDENT May 06, 2021 07:43 FEDERICO SILVER DO May 06, 2021 23:26
--- NOTE | 2021-05-06 08:36 | Consultation - Hospitalist ---
HPI History of Present Illness: HPI/Chief Complaint Pt is a 56yo who presented to the ER due to a wound on his groin. He is sleeping when I entered the room and did not want to wake up. He answered very few questions and mostly just groaned and stated his body was sore and he was not ready to talk. History is obtained from the records due to this. Apparently he noticed an abscess on 05/02 and was seen in the ER in [place], [place] for that. It was draining on its own and a culture was obtained and he was prescribed Bactrim though was unable to fill it until 05/04. He did take two doses of it though. 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 I am consulted for medical management. He reports a history of DM though was unable to tell me if he is on insulin or pills. He is also quite hypertensive and nods when asked if he has this chronically. Per ER note paperwork from [place] showed last a1c was 12. Source: patient, family Date Seen 05/06/21 Attending Physician Federico Silver DO PCP Luis Eduardo Bragg MD Referring Physician Date of Admission Home Medications & Allergies Home Medications Reviewed patient Home Medication Reconciliation performed by pharmacy medication reconciliations mathematical technician and/or nursing. Patients Allergies have been reviewed. Allergies Allergies Coded Allergies No Known Drug Allergies (Wokemyboiq68/2/20) Past Ohirsyj-Gzknkz-Gagbfe Hx Patient Social History Tobacco Use?: Yes Tobacco type used: Cigarettes Smoking Status: Current Everyday Smoker Use of E-Cig and/or Vaping dev: No E-Cig or Vaping type used: Marijuana Substance use?: Yes Substance type: Methamphetamine Substance frequency: Daily Alcohol Use?: Yes Alcohol type: Hard Liquor Alcohol Frequency: Couple times a week Pt feels they are or have been: No Immunizations Up To Date Date of Influenza Vaccine: Apr 22, 2021 First/Initial COVID19 Vaccinat: 04/22 Second COVID19 Vaccination Renzo: 04/22 Tetanus Booster (TDap): Unknown Current Status Advance Directives: No Communicates: Verbally Primary Language: Citizen Of [place] Preferred Spoken Language: Citizen Of [place] Is interpretation needed?: No Implanted or Applied Medical D: None Past Medical History Surgeries: Orthopedic Hypertension Stroke Diabetes, Non-Insulin dep Family Medical History Reviewed Nursing Family Hx No Pertinent Family Hx Review of Systems ROS-Unable to Obtain: Quite sleepy, did not participate Constitutional: see HPI Genitourinary: see HPI Musculoskeletal: other ("sore body") Physical Exam Physical Exam Vital Signs Vital Signs - First Documented 05/05/21 13:05 Temp 37.0 Pulse 104 Resp 24 B/P (MAP) 173/79 (110) Pulse Ox 98 O2 Delivery Room Air Capillary Refill : Less Than 3 Seconds Height, Weight, BMI Height: '" Weight: lbs. oz. kg; 43.52 BMI Method: General Appearance: No Apparent Distress, Chronically ill, Obese HEENT: Moist Mucous Membranes; No Scleral Icterus (L), No Scleral Icterus (R) Neck: Normal Inspection, Supple Respiratory: Lungs Clear, No Accessory Muscle Use, No Respiratory Distress Cardiovascular: Regular Rate, Rhythm, No Edema, No JVD, Normal Peripheral Pulses Gastrointestinal: Non Tender, Soft, Tenderness (Left groin) Genital/Rectal: Other (surgical dressing in place, I did not undress) Extremity: Normal Inspection, Non Tender, No Pedal Edema Neurologic/Psychiatric: Alert, Oriented x3, Normal Mood/Affect Skin: Normal Color, Warm/Dry, Tattoos/Piercings Results Results/Procedures Labs Laboratory Tests 05/05/21 13:40 05/06/21 04:30 Patient resulted labs reviewed. Imaging: Reviewed Imaging Report Imaging [facility] [place] NAME: SRIDEVI MASTERSON V [facility] REC#: [id number] PT STATUS: REG [facility] [place] : 1965 PHYSICIAN: JOSH URIAS MD ADMIT DATE: 05/05/21/[facility] [place] [facility] Signed Date of Exam:05/05/21 CHEST 1 VIEW, AP/PA ONLY EXAMINATION: Chest, one view. HISTORY: Sepsis. Groin abscess. COMPARISON: 11/18/2019. FINDINGS: The lung volumes are normal. No focal consolidation is seen. No large pleural effusion or pneumothorax is seen. The cardiomediastinal silhouette is normal in size and contour. No acute osseous abnormality is seen. IMPRESSION: 1. No acute pleural-parenchymal process. Dictated by: Dictated on workstation # [id number] Dict: 05/05/21 1427 Trans: 05/05/21 1435 [id number] Interpreted by: YOBANY HAWKINS DO Electronically signed by: YOBANY HAWKINS DO 05/05/21 1435 Assessment/Plan Assessment and Plan Assess & Plan/Chief Complaint Sepsis due to orin's gangrene- POA s/p debridement on 05/05 management per primary Continue on IV abx Await cultures ER contacted [place] for their culture results yesterday and they are still pending Poorly controlled DMII SSI for now Fasting blood sugar 168 this AM Unsure of home regimen HTN Hydralzine prn as just started elevating this AM if needing repeated doses will start Amlodipine Illicit drug use Reports meth use to ER, unsure of route of administration DVT ppx:Lovenox when ok with surgery Diagnosis/Problems Diagnosis/Problems (1) Essential (primary) hypertension (2) Methamphetamine use (3) 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
[2021-05-06] MEDS: HYDROcodone/APAP 5 MG/325 MG (LORTAB) TAB PO PRN ×2 (08:59→14:50)
[2021-05-06] MEDS: PIPERACILLIN/TAZO 4.5 GM/NS 100 ML IV SCH ×4 (08:59→15:28)
[2021-05-06] MEDS: POVIDONE (BETADINE) 10% SOLN 240 ML BTL TOP SCH ×2 (09:00→20:20)
--- NOTE | 2021-05-06 12:10 | Tele-ICU Progress Note ---
Subjective Date Seen by a Provider: May 06, 2021 Time Seen by a Provider: 12:09 Sepsis Event Evaluation Height, Weight, BMI Height: '" Weight: lbs. oz. kg; 43.52 BMI Method: Focused Exam Lactate Level 05/05/21 13:40: Lactic Acid Level 2.02*H 05/05/21 17:25: Lactic Acid Level 1.39 Exam Exam Patient acknowledged, consented, and participated in this virtual visit which was conducted using real time audio/video Vital Signs Date Time Temp Pulse Resp B/P (MAP) Pulse Ox O2 Delivery O2 Flow Rate FiO2 05/06/21 12:00 36.7 05/06/21 11:00 102 23 161/108 (125) Nasal Cannula 2.00 05/06/21 10:00 101 22 159/92 (114) 94 Nasal Cannula 2.00 05/06/21 09:00 95 25 158/95 (116) 93 Nasal Cannula 2.00 05/06/21 08:00 36.8 05/06/21 08:00 101 16 193/112 (139) 95 Nasal Cannula 2.00 05/06/21 08:00 97 Nasal Cannula 2.00 05/06/21 07:00 95 12 198/109 (138) 96 Nasal Cannula 2.00 05/06/21 06:27 97 05/06/21 06:00 98 16 179/92 (121) 94 Nasal Cannula 2.00 05/06/21 05:00 99 17 134/58 (83) 97 Nasal Cannula 2.00 05/06/21 04:43 36.4 05/06/21 04:00 97 Nasal Cannula 2.00 05/06/21 04:00 92 15 124/67 (86) 96 Nasal Cannula 2.00 05/06/21 03:00 93 17 158/79 (105) 94 Nasal Cannula 2.00 05/06/21 02:00 96 17 140/78 (98) 94 Nasal Cannula 2.00 05/06/21 01:00 97 05/06/21 01:00 97 16 158/76 (103) 96 Nasal Cannula 2.00 05/06/21 00:01 36.8 05/06/21 00:00 95 18 136/85 (102) 97 Nasal Cannula 2.00 05/05/21 23:59 97 Nasal Cannula 2.00 05/05/21 23:00 94 19 133/69 (90) 94 Nasal Cannula 2.00 05/05/21 22:00 92 18 145/69 (94) 95 Nasal Cannula 2.00 05/05/21 21:00 97 14 141/67 (91) 92 Nasal Cannula 2.00 05/05/21 20:33 37.1 05/05/21 20:02 36.6 05/05/21 20:00 96 20 133/57 (82) 96 Nasal Cannula 2.00 05/05/21 20:00 97 Nasal Cannula 2.00 05/05/21 19:00 98 13 133/68 (89) 95 Nasal Cannula 2.00 05/05/21 19:00 98 05/05/21 18:00 95 22 130/78 (95) 94 Nasal Cannula 2.00 05/05/21 17:00 92 05/05/21 17:00 92 23 111/78 (89) 95 Nasal Cannula 2.00 05/05/21 16:45 92 Nasal Cannula 2.00 05/05/21 16:40 OxyMask 2 05/05/21 16:40 36.3 18 135/80 (98) 93 OxyMask 2 05/05/21 16:32 OxyMask 2 05/05/21 16:30 18 124/87 (99) 96 OxyMask 2 05/05/21 16:27 OxyMask 2 05/05/21 16:25 OxyMask 2 05/05/21 16:20 OxyMask 2 05/05/21 16:20 18 125/73 (90) 94 OxyMask 2 05/05/21 16:16 OxyMask 4 05/05/21 16:10 OxyMask 6 05/05/21 16:10 18 132/75 (94) 94 OxyMask 6 05/05/21 16:07 18 121/79 (93) 94 OxyMask 6 05/05/21 15:58 36.6 16 113/80 (91) 97 OxyMask 6 05/05/21 15:58 OxyMask 6 05/05/21 14:41 102 24 131/84 98 Room Air 05/05/21 13:05 37.0 104 24 173/79 (110) 98 Room Air I & O 05/06/21 07:00 Intake Total 870 ml Output Total 2000 ml Balance -1130 ml Height & Weight Height: '" Weight: lbs. oz. kg; 43.52 BMI Method: General Appearance: No Apparent Distress, Chronically ill, Obese HEENT: Moist Mucous Membranes; No Scleral Icterus (L), No Scleral Icterus (R) Neck: Normal Inspection, Supple Respiratory: Lungs Clear, No Accessory Muscle Use, No Respiratory Distress Cardiovascular: Regular Rate, Rhythm, No Edema, No JVD, Normal Peripheral Pulses Capillary Refill: Less Than 3 Seconds Gastrointestinal: normal bowel sounds, non tender, soft, abnormal bowel sounds (Hypoactive), tenderness (Diffuse lower abdominal tenderness without rebound or involuntary guarding) Extremity: Normal Inspection, Non Tender, No Pedal Edema Neurologic/Psychiatric: Alert, Oriented x3, Normal Mood/Affect Skin: Normal Color, Warm/Dry, Tattoos/Piercings Results Lab Laboratory Tests 05/05/21 13:40 05/06/21 04:30 Assessment/Plan Assessment/Plan (Tele-ICU Physician , consultation) Available chart/ vitals / labs / Images reviewed H&P is from ER notes Patient's information available about PMH, Shx, Fhx allergy reviewed in EMR. ROS as per chart and RN report Now in ICU, hemodynamically stable Video assessment done using teleICU camera, rest of exam as per RN Discussed with RN. Consultants: DONTE Hospital course: 05/05 - ER: abscess/infection to his scrotum. --> s/p I& D left groin A/P Juanjo Gangrene - - report pending - cont zosyn , vanco and clinda were added by sx today - pain control Acute resp failure - hypoxia post op with low TV - -will initiate IS and will benefit from CPAP at night - RN will discuss with patient DM II , poorly controlled , as per records -hemoglobin A1c is 12. - ISS for now JANA - CPAP at home , noncompliant - will be beneficial at night h/o CVA - plavix on hold - to resume when ok with PCP and Sx Lines : periph (Central Line Necessity Reviewed) [place]ler: OG: Nutrition: Analgesia: Anxiety/ delirium VTE Prophylaxis: SCD , lovenox when ok with Sx Stress Ulcer Prophylaxis: Po Plans in collaboration with bedside consultants and IM MDs. Discussed with RN to reach out if any questions or concerns A total of 35 minutes of critical care time was devoted to this patient today, required to treat and/or prevent further deterioration of critical care condition ( as above ) . ERASMO ROJAS MD May 06, 2021 12:10
--- NOTE | 2021-05-06 13:48 | Anesthesia-General Post-Op ---
General Patient Condition Mental Status/LOC: Same as Preop Cardiovascular: Satisfactory Nausea/Vomiting: Absent Respiratory: Satisfactory Pain: Controlled Complications: Absent Post Op Complications Complications None Follow Up Care/Instructions Patient Instructions None needed. Anesthesia/Patient Condition Patient Condition Patient is doing well, no complaints, stable vital signs, no apparent adverse anesthesia problems. No complications reported per nursing. HIPOLITO GUERRERO CRNA May 06, 2021 13:48
[2021-05-06] MEDS: hydrALAZINE (APESOLINE) 20 MG/ML VIAL IV PRN (22:19)
[2021-05-07] VITALS (20 sets, daily range): BP systolic 123–216; BP diastolic 61–148
[2021-05-07] MEDS: PIPERACILLIN/TAZO 4.5 GM/NS 100 ML IV SCH ×8 (00:55→23:35)
[2021-05-07] MEDS ORDERED: TROUGH ORDER-PHARMACY XX NR (05:00)
[2021-05-07] MEDS: LACTATED RINGERS 1,000 ML IV SCH ×2 (05:03→06:22)
[2021-05-07 05:24] LABS: BASOPHILS % (AUTO) 1 % (0-10); EOSINOPHILS # (AUTO) 0.2 10^3/uL (0.0-0.3); EOSINOPHILS % (AUTO) 2 % (0-10); HEMATOCRIT 43 % (40-54); HEMOGLOBIN 14.3 g/dL (13.3-17.7); LYMPHOCYTES # (AUTO) 0.9 10^3/uL (1.0-4.0); LYMPHOCYTES % (AUTO) 13 % (12-44); MEAN CORPUSCULAR HEMOGLOBIN 29 pg (25-34); MEAN CORPUSCULAR HGB CONC 33 g/dL (32-36); MEAN CORPUSCULAR VOLUME 89 fL (80-99); MEAN PLATELET VOLUME 10.3 fL (9.0-12.2); MONOCYTES # (AUTO) 0.8 10^3/uL (0.0-1.0); MONOCYTES % (AUTO) 12 % (0-12); NEUTROPHILS # (AUTO) 4.6 10^3/uL (1.8-7.8); NEUTROPHILS % (AUTO) 71 % (42-75); PLATELET COUNT 203 10^3/uL (130-400); WHITE BLOOD COUNT 6.5 10^3/uL (4.3-11.0)
[2021-05-07] MEDS: CLINDAMYCIN 900 MG/50 ML IVPB 50 ML IV SCH ×3 (05:33→21:01)
[2021-05-07 05:36] LABS: ALBUMIN 3.3 GM/DL (3.2-4.5); POTASSIUM 3.9 MMOL/L (3.6-5.0)
[2021-05-07 05:37] LABS: CALCIUM 8.9 MG/DL (8.5-10.1)
[2021-05-07 05:39] LABS: TOTAL PROTEIN 6.4 GM/DL (6.4-8.2)
[2021-05-07 05:40] LABS: BILIRUBIN,TOTAL 0.4 MG/DL (0.1-1.0)
[2021-05-07] MEDS: POTASSIUM CL 10MEQ/50ML IVPB 50 ML IV SCH (05:40)
[2021-05-07] MEDS: KCL 20 MEQ TAB (K-DUR) PO SCH (05:40)
[2021-05-07 05:42] LABS: CREATININE SERUM 0.79 MG/DL (0.60-1.30)
[2021-05-07 05:45] LABS: MAGNESIUM 1.8 MG/DL (1.6-2.4)
[2021-05-07 05:54] LABS: VANCOMYCIN,TROUGH 7.4 UG/ML (10.0-20.0)
[2021-05-07] MEDS: hydrALAZINE (APESOLINE) 20 MG/ML VIAL IV PRN ×3 (06:22→23:32)
[2021-05-07] MEDS: VANCOMYCIN 2000 MG/NS 500 ML IVPB IV SCH ×2 (06:22)
[2021-05-07] MEDS: MAGNESIUM 1 GM/100 ML IVPB 100 ML IV SCH (06:22)
[2021-05-07] MEDS: inSUlin ASPART (NovoLOG) 1 UNIT/0.01 ML (CHARGE PER UNIT) SC SCH ×4 (06:23→20:59)
--- NOTE | 2021-05-07 07:04 | Progress Note - Surgery ---
BENJAMÍN SEARS A MED STUDENT 05/07/21 0704: Subjective Date Seen by a Provider: May 07, 2021 Time Seen by a Provider: 07:03 Subjective/Events-last exam Pt asleep in bed this morning, but easy to wake. Pt reports he feels better today. Pt rates his pain a 5/10. Denies urinary frequency, hesitancy or burning, chest pain, SOA, dizziness. Pt confirms headache for the last day. Pt does report a good appetite, but can't recall what he ate last noc. Denies BM yesterday. Review of Systems General: No Chills, No Fatigue HEENT: Head Aches; No Visual Changes Pulmonary: No Dyspnea, No Cough Cardiovascular: No: Chest Pain, Palpitations Gastrointestinal: No: Nausea, Vomiting, Abdominal Pain, Diarrhea, Constipation Genitourinary: No Dysuria, No Frequency, No Retention Neurological: No: Weakness, Numbness Focused Exam Lactate Level 05/05/21 13:40: Lactic Acid Level 2.02*H 05/05/21 17:25: Lactic Acid Level 1.39 Objective Exam Vital Signs Date Time Temp Pulse Resp B/P (MAP) Pulse Ox O2 Delivery O2 Flow Rate FiO2 05/07/21 06:30 99 8 167/76 (106) 94 Nasal Cannula 2.00 05/07/21 05:39 97 182/75 (110) 94 Nasal Cannula 2.00 05/07/21 04:00 36.4 05/07/21 04:00 94 Nasal Cannula 2.00 05/07/21 04:00 101 20 92 Nasal Cannula 2.00 05/07/21 03:00 101 18 92 Nasal Cannula 2.00 05/07/21 02:32 101 20 159/73 (101) 94 Nasal Cannula 2.00 05/07/21 01:00 102 05/07/21 01:00 102 15 178/86 (116) 95 Nasal Cannula 2.00 05/07/21 00:00 100 19 147/91 (101) 94 Nasal Cannula 2.00 05/06/21 23:59 94 Nasal Cannula 2.00 05/06/21 23:57 36.8 05/06/21 23:30 101 25 175/67 (89) 93 Nasal Cannula 2.00 05/06/21 22:30 98 18 161/94 (115) 95 Nasal Cannula 2.00 05/06/21 21:00 96 22 152/96 (121) 95 Nasal Cannula 2.00 05/06/21 20:42 36.7 05/06/21 20:30 95 17 160/75 (99) 94 Nasal Cannula 2.00 05/06/21 20:00 95 Nasal Cannula 2.00 05/06/21 19:00 93 11 180/79 (112) 93 Nasal Cannula 2.00 05/06/21 19:00 93 05/06/21 18:00 99 24 188/100 (129) 95 Nasal Cannula 2.00 05/06/21 17:00 99 16 196/94 (128) 97 Nasal Cannula 2.00 05/06/21 16:22 36.7 05/06/21 16:00 103 19 168/98 (121) 92 Nasal Cannula 2.00 05/06/21 16:00 97 Nasal Cannula 2.00 05/06/21 15:00 94 29 169/94 (119) 95 Nasal Cannula 2.00 05/06/21 14:00 93 15 136/87 (103) 94 Nasal Cannula 2.00 05/06/21 13:00 92 21 169/83 (111) 95 Nasal Cannula 2.00 05/06/21 13:00 94 05/06/21 12:00 99 19 158/82 (107) 96 Nasal Cannula 2.00 05/06/21 12:00 36.7 05/06/21 12:00 97 Nasal Cannula 2.00 05/06/21 11:00 102 23 161/108 (125) Nasal Cannula 2.00 05/06/21 10:00 101 22 159/92 (114) 94 Nasal Cannula 2.00 05/06/21 09:00 95 25 158/95 (116) 93 Nasal Cannula 2.00 05/06/21 08:00 36.8 05/06/21 08:00 101 16 193/112 (139) 95 Nasal Cannula 2.00 05/06/21 08:00 97 Nasal Cannula 2.00 I & O 05/07/21 07:00 Intake Total 3280 ml Output Total 5175 ml Balance -1895 ml Capillary Refill : Less Than 3 Seconds General Appearance: No Apparent Distress, WD/WN HEENT: PERRL/EOMI, Normal ENT Inspection Neck: Non Tender, Supple Respiratory: Chest Non Tender, Lungs Clear, Normal Breath Sounds, No Accessory Muscle Use, No Respiratory Distress Cardiovascular: Regular Rate, Rhythm, No Edema, No JVD, Normal Peripheral Pulses Gastrointestinal: normal bowel sounds, non tender, soft, no organomegaly, no pulsatile mass Extremity: Normal Inspection, Non Tender, No Pedal Edema Neurologic/Psychiatric: Alert, Oriented x3, No Motor/Sensory Deficits, Normal Mood/Affect, 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3, Immature Granulocyte % (Auto) 1, Neutrophils (%) (Auto) 71, Lymphocytes (%) (Auto) 13, Monocytes (%) (Auto) 12, Eosinophils (%) (Auto) 2, Basophils (%) (Auto) 1, Neutrophils # (Auto) 4.6, Lymphocytes # (Auto) 0.9L, Monocytes # (Auto) 0.8, Eosinophils # (Auto) 0.2, Basophils # (Auto) 0.0, Immature Granulocyte # (Auto) 0.1, Sodium Level 136, Potassium Level 3.9, Chloride Level 102, Carbon Dioxide Level 21, Anion Gap 13, Blood Urea Nitrogen 11, Creatinine 0.79, Estimat Glomerular Filtration Rate 102, BUN/Creatinine Ratio 14, Glucose Level 241H, Calcium Level 8.9, Corrected Calcium 9.5, Phosphorus Level 3.0, Magnesium Level 1.8, Total Bilirubin 0.4, Aspartate Amino Transf (AST/SGOT) 20, Alanine Aminotransferase (ALT/SGPT) 26, Alkaline Phosphatase 155H, Total Protein 6.4, Albumin 3.3, Vancomycin Level Trough 7.4L Microbiology 05/05/21 Gram Stain - Final, Resulted 05/05/21 Anaerobic Culture, Resulted Pending 05/05/21 Surgical Culture - Preliminary, Resulted Strep agalactiae Group B See Comments 05/05/21 Fungal Culture 1 - Preliminary, Resulted 05/05/21 Blood Culture - Preliminary, Resulted No growth Assessment/Plan Assessment/Plan Admission Diagonsis Juanjo Gangrene Assessment/Plan Juanjo Gangrene Hx of stroke with anticoagulation HTN Diabetes 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 Blood sugars not controlled still elevated. Patient with pain that he rates at a 5 out of 10 at worst. Otherwise fairly controlled. Patient left groin and scrotum feeling better. Denies any nausea vomiting fever sweats chills shortness of breath or chest pain at this time. 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 Norm as Tested Skin: Normal Color, Warm/Dry, Other (scrotal erythema and edema less, left g roin wound open, no significant drainage tissue pink with minimal slough) Lymphatic: No Adenopathy Assessment/Plan Assessment/Plan Assessment/Plan Juanjo Gangrene Hx of stroke with anticoagulation HTN Diabetes 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 -Scrotal erythema and edema significantly improved from yesterday -Continue wound care will have VAC placed today -WBC trending down, currently 6.5 -continue abx Hx of stroke with anticoagulation therapy -Platelets infused yesterday due to antiplatelet, plavix on hold HTN -Will monitor with help of hospitalist, appreciate their assistance Diabetes -SSI, tight glucose control Tobacco, Methamphetamine and Marijuana abuse -Discussed importance of cessation Obesity Supervisory-Addendum Brief Verification & Attestation Participated in pt care: history, MDM, physical Personally performed: exam, history, MDM, supervision of care Care discussed with: Medical Student Procedures: n/a Results interpretation: Verified all documentation Verification and Attestation of Medical Student E/M Service A medical student performed and documented this service in my presence. I reviewed and verified all information documented by the medical student and made modifications to such information, when appropriate. I personally performed the physical exam and medical decision making. Federico Silver, May 07, 2021,21:29 BENJAMÍN SEARS MED STUDENT May 07, 2021 07:04 FEDERICO SILVER DO May 07, 2021 21:29
--- NOTE | 2021-05-07 08:08 | Progress Note - Hospitalist ---
Subjective HPI/CC On Admission Date Seen by Provider: May 07, 2021 Time Seen by Provider: 08:59 Pt is a 56yo who presented to the ER due to a wound on his groin. He is sleeping when I entered the room and did not want to wake up. He answered very few questions and mostly just groaned and stated his body was sore and he was not ready to talk. History is obtained from the records due to this. Apparently he noticed an abscess on 05/02 and was seen in the ER in [place], [place] for that. It was draining on its own and a culture was obtained and he was prescribed Bactrim though was unable to fill it until 05/04. He did take two doses of it though. 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 I am consulted for medical management. He reports a history of DM though was unable to tell me if he is on insulin or pills. He is also quite hypertensive and nods when asked if he has this chronically. Per ER note paperwork from [facility] showed last a1c was 12. Subjective/Events-last exam Pt reports doing "so-so." Has some pain from surgery. Otherwise no specific complaints. Still quite hypertensive and he is unsure of his home BP meds. Revie wed notes from [facility] and he appears to take Lisinopril/HCTZ combo. Focused Exam Lactate Level 05/05/21 13:40: Lactic Acid Level 2.02*H 05/05/21 17:25: Lactic Acid Level 1.39 Objective Exam Vital Signs Vital Signs Date Time Temp Pulse Resp B/P (MAP) Pulse Ox O2 Delivery O2 Flow Rate FiO2 05/07/21 08:00 92 Nasal Cannula 2.00 05/07/21 07:52 36.5 05/07/21 06:30 99 8 167/76 (106) Capillary Refill : Less Than 3 Seconds General Appearance: No Apparent Distress, Chronically ill, Obese Respiratory: Lungs Clear, No Respiratory Distress Cardiovascular: Regular Rate, Rhythm, No Murmur Neurologic/Psychiatric: Alert, Oriented x3 Results/Procedures Lab Laboratory Tests 05/07/21 05:00 Patient resulted labs reviewed. Imaging: Reviewed Imaging Report Assessment/Plan Assessment and Plan Assess & Plan/Chief Complaint Sepsis due to orin's gangrene- POA s/p debridement on 05/05 management per primary Continue on IV abx Wound culture here with GBS Poorly controlled DMII SSI for now Fasting blood sugar 168 this AM Unsure of home regimen- reviewed [facility] notes and he is prescribed 60u BID Lev zaynab and 40 units TID Novolog Given fasting blood sugars with just sliding scale in the high 100s and low 200s I don't believe he is compliant with these high doses Start Levemir 10 units today and increase to sliding scale B HTN Hydralzine prn as just started elevating this AM Will start home meds of lisinopril and HCTZ today Illicit drug use Reports meth use to ER, unsure of route of administration DVT ppx:Lovenox when ok with surgery Diagnosis/Problems Diagnosis/Problems (1) Essential (primary) hypertension (2) Methamphetamine use (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
[2021-05-07] MEDS: POVIDONE (BETADINE) 10% SOLN 240 ML BTL TOP SCH (08:56)
[2021-05-07] MEDS: lisINopril 20 MG (PRINIVIL) TABLET PO SCH (08:56)
--- NOTE | 2021-05-07 08:58 | Tele-ICU Progress Note ---
Subjective Date Seen by a Provider: May 07, 2021 Time Seen by a Provider: 08:53 Subjective/Events-last exam Being treated for Juanjo's gangrene, On Clinda, Vanco, Zosyn Hb 15 grew Strep Group B from wound glu in 300's On Levimer 10 U/d, sliding scale Sepsis Event Evaluation Height, Weight, BMI Height: '" Weight: lbs. oz. kg; 43.52 BMI Method: Focused Exam Lactate Level 05/05/21 13:40: Lactic Acid Level 2.02*H 05/05/21 17:25: Lactic Acid Level 1.39 Exam Exam Patient acknowledged, consented, and participated in this virtual visit which was conducted using real time audio/video Vital Signs Date Time Temp Pulse Resp B/P (MAP) Pulse Ox O2 Delivery O2 Flow Rate FiO2 05/07/21 08:00 92 Nasal Cannula 2.00 05/07/21 07:52 36.5 05/07/21 06:30 99 8 167/76 (106) 94 Nasal Cannula 2.00 05/07/21 05:39 97 182/75 (110) 94 Nasal Cannula 2.00 05/07/21 04:00 36.4 05/07/21 04:00 94 Nasal Cannula 2.00 05/07/21 04:00 101 20 92 Nasal Cannula 2.00 05/07/21 03:00 101 18 92 Nasal Cannula 2.00 05/07/21 02:32 101 20 159/73 (101) 94 Nasal Cannula 2.00 05/07/21 01:00 102 05/07/21 01:00 102 15 178/86 (116) 95 Nasal Cannula 2.00 05/07/21 00:00 100 19 147/91 (101) 94 Nasal Cannula 2.00 05/06/21 23:59 94 Nasal Cannula 2.00 05/06/21 23:57 36.8 05/06/21 23:30 101 25 175/67 (89) 93 Nasal Cannula 2.00 05/06/21 22:30 98 18 161/94 (115) 95 Nasal Cannula 2.00 05/06/21 21:00 96 22 152/96 (121) 95 Nasal Cannula 2.00 05/06/21 20:42 36.7 05/06/21 20:30 95 17 160/75 (99) 94 Nasal Cannula 2.00 05/06/21 20:00 95 Nasal Cannula 2.00 05/06/21 19:00 93 11 180/79 (112) 93 Nasal Cannula 2.00 05/06/21 19:00 93 05/06/21 18:00 99 24 188/100 (129) 95 Nasal Cannula 2.00 05/06/21 17:00 99 16 196/94 (128) 97 Nasal Cannula 2.00 05/06/21 16:22 36.7 05/06/21 16:00 103 19 168/98 (121) 92 Nasal Cannula 2.00 05/06/21 16:00 97 Nasal Cannula 2.00 05/06/21 15:00 94 29 169/94 (119) 95 Nasal Cannula 2.00 05/06/21 14:00 93 15 136/87 (103) 94 Nasal Cannula 2.00 05/06/21 13:00 92 21 169/83 (111) 95 Nasal Cannula 2.00 05/06/21 13:00 94 05/06/21 12:00 99 19 158/82 (107) 96 Nasal Cannula 2.00 05/06/21 12:00 36.7 05/06/21 12:00 97 Nasal Cannula 2.00 05/06/21 11:00 102 23 161/108 (125) Nasal Cannula 2.00 05/06/21 10:00 101 22 159/92 (114) 94 Nasal Cannula 2.00 05/06/21 09:00 95 25 158/95 (116) 93 Nasal Cannula 2.00 I & O 05/07/21 07:00 Intake Total 3280 ml Output Total 5175 ml Balance -1895 ml Height & Weight Height: '" Weight: lbs. oz. kg; 43.52 BMI Method: General Appearance: No Apparent Distress, WD/WN, Mild Distress (only needed pain meds twice) HEENT: PERRL/EOMI, Normal ENT Inspection Neck: Non Tender, Supple Respiratory: Chest Non Tender, Lungs Clear, Normal Breath Sounds, No Accessory Muscle Use, No Respiratory Distress Cardiovascular: Regular Rate, Rhythm, No Edema, No JVD, Normal Peripheral Pulses Capillary Refill: Less Than 3 Seconds Gastrointestinal: normal bowel sounds, non tender, soft, no organomegaly, no pulsatile mass, other (scrotal wound dressing being changed twice a day) Extremity: Normal Inspection, Non Tender, No Pedal Edema Neurologic/Psychiatric: Alert, Oriented x3, No Motor/Sensory Deficits, Normal Mood/Affect, 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 Norm as Tested Skin: Normal Color, Warm/Dry, Other (scrotal erythema and edema less, left groin wound open, no significant drainage tissue pink) Lymphatic: No Adenopathy Results Lab Laboratory Tests 05/05/21 13:40 05/06/21 04:30 05/07/21 05:00 Assessment/Plan Assessment/Plan Juanjo Gangrene - - appears improving - cont zosyn , vanco and clinda were added by sx today - pain control Acute resp failure - hypoxia post op with low TV - -will initiate IS and will benefit from CPAP at night - RN will discuss with patient Now on 2 lpm NC with SpO2 92% DM II , poorly controlled , as per records -hemoglobin A1c is 12. - ISS for now JANA - CPAP at home , noncompliant - will be beneficial at night h/o CVA - plavix on hold - to resume when ok with PCP and Sx Critical Care: Critically Ill Patient Time spent with patient (mins): 20 FAM NIÑO MD May 07, 2021 08:58
[2021-05-07] MEDS: HYDROcodone/APAP 5 MG/325 MG (LORTAB) TAB PO PRN ×2 (11:01→14:28)
[2021-05-07] MEDS ORDERED: ATOR40TA70 PO (11:53)
[2021-05-07] MEDS ORDERED: INSU100I14 SQ (11:53)
[2021-05-07] MEDS ORDERED: ACHD5005 PO (11:53)
[2021-05-07] MEDS ORDERED: CLOP75TA69 PO (11:53)
[2021-05-07] MEDS ORDERED: INSU100I29 SQ (11:53)
[2021-05-07] MEDS ORDERED: DAPA10TA PO (11:53)
[2021-05-07] MEDS ORDERED: LISI1TAB26 PO (11:53)
[2021-05-07] MEDS ORDERED: BACL20TA PO (11:53)
[2021-05-07] MEDS ORDERED: SULF1TAB38 PO (11:53)
[2021-05-07] MEDS ORDERED: PANT40TA52 PO (11:53)
[2021-05-07] MEDS ORDERED: MAGN200T PO (12:07)
[2021-05-07] MEDS: VANCOMYCIN INJECTION 1,500 MG in NS IV 500 ML 500 ML IV SCH ×2 (13:44→21:44)
[2021-05-07] MEDS ORDERED: VANCOMYCIN INJECTION 1,250 MG in NS (IVPB) 250 ML IV SCH (14:00)
[2021-05-07] MEDS ORDERED: DAKIN'S 1/4 STRENGTH (0.125%) 473 ML BTL TOP SCH (21:00)
[2021-05-08] VITALS: BP 128/61
[2021-05-08] MEDS: HYDROcodone/APAP 5 MG/325 MG (LORTAB) TAB PO PRN ×3 (00:46→11:31)
[2021-05-08 04:00] VITALS: BP 128/61
[2021-05-08 04:49] LABS: BASOPHILS % (AUTO) 1 % (0-10); EOSINOPHILS # (AUTO) 0.2 10^3/uL (0.0-0.3); EOSINOPHILS % (AUTO) 3 % (0-10); HEMATOCRIT 44 % (40-54); HEMOGLOBIN 14.8 g/dL (13.3-17.7); LYMPHOCYTES # (AUTO) 1.2 10^3/uL (1.0-4.0); LYMPHOCYTES % (AUTO) 14 % (12-44); MEAN CORPUSCULAR HEMOGLOBIN 30 pg (25-34); MEAN CORPUSCULAR HGB CONC 33 g/dL (32-36); MEAN CORPUSCULAR VOLUME 89 fL (80-99); MONOCYTES # (AUTO) 0.9 10^3/uL (0.0-1.0); MONOCYTES % (AUTO) 11 % (0-12); NEUTROPHILS % (AUTO) 71 % (42-75); PLATELET COUNT 219 10^3/uL (130-400); WHITE BLOOD COUNT 8.5 10^3/uL (4.3-11.0)
[2021-05-08] MEDS: CLINDAMYCIN 900 MG/50 ML IVPB 50 ML IV SCH ×3 (05:03→21:09)
[2021-05-08 05:48] LABS: ALBUMIN 3.3 GM/DL (3.2-4.5)
[2021-05-08 05:49] LABS: CALCIUM 9.1 MG/DL (8.5-10.1)
[2021-05-08 05:51] LABS: TOTAL PROTEIN 6.5 GM/DL (6.4-8.2)
[2021-05-08 05:52] LABS: BILIRUBIN,TOTAL 0.4 MG/DL (0.1-1.0)
[2021-05-08] MEDS: VANCOMYCIN INJECTION 1,500 MG in NS IV 500 ML 500 ML IV SCH (05:53)
[2021-05-08 05:54] LABS: CREATININE SERUM 0.86 MG/DL (0.60-1.30); PHOSPHORUS 3.6 MG/DL (2.3-4.7)
[2021-05-08] MEDS: inSUlin ASPART (NovoLOG) 1 UNIT/0.01 ML (CHARGE PER UNIT) SC SCH ×4 (05:54→20:57)
[2021-05-08 05:57] LABS: MAGNESIUM 1.8 MG/DL (1.6-2.4)
[2021-05-08] MEDS: POTASSIUM CL 10MEQ/50ML IVPB 50 ML IV SCH (06:01)
[2021-05-08] MEDS: MAGNESIUM 1 GM/100 ML IVPB 100 ML IV SCH (06:01)
[2021-05-08] MEDS: KCL 20 MEQ TAB (K-DUR) PO SCH (06:01)
--- NOTE | 2021-05-08 07:05 | Progress Note - Surgery ---
BENJAMÍN SEARS A MED STUDENT 05/08/21 0705: Subjective Date Seen by a Provider: May 08, 2021 Time Seen by a Provider: 07:05 Subjective/Events-last exam Pt asleep in bed this morning, but easy to wake. Pt reports his left foot is burning, he attributes this to his neuropathy. Pt states this has happened before and he uses voltaren gel and gets up and walks around. He has not been able to get up and walk around in ICU, but would like to. Pt reports his foot pain is 8/10, but his scrotal pain is much less. Denies chest pain, SOA, cough, VANN, dizziness or trouble with urination. Review of Systems General: No Chills, No Fatigue HEENT: No Head Aches, No Visual Changes Pulmonary: No Dyspnea, No Cough Cardiovascular: No: Chest Pain, Palpitations Gastrointestinal: No: Nausea, Vomiting, Abdominal Pain, Diarrhea, Constipation Genitourinary: No Dysuria, No Frequency, No Retention Musculoskeletal: foot pain (Burning left foot pain) Neurological: No: Weakness, Numbness Focused Exam Lactate Level 05/05/21 13:40: Lactic Acid Level 2.02*H 05/05/21 17:25: Lactic Acid Level 1.39 Objective Exam Vital Signs Date Time Temp Pulse Resp B/P (MAP) Pulse Ox O2 Delivery O2 Flow Rate FiO2 05/08/21 04:00 36.6 05/08/21 04:00 105 15 128/61 (83) 94 Nasal Cannula 2.00 05/08/21 04:00 94 Nasal Cannula 2.00 05/08/21 00:00 36.7 05/08/21 00:00 105 15 128/61 (83) 94 Nasal Cannula 2.00 05/07/21 23:59 94 Nasal Cannula 2.00 05/07/21 23:30 98 17 143/67 (92) 93 Nasal Cannula 2.00 05/07/21 22:00 96 19 123/61 (81) 94 Nasal Cannula 2.00 05/07/21 20:00 93 Nasal Cannula 2.00 05/07/21 20:00 89 14 160/89 (112) 93 Nasal Cannula 2.00 05/07/21 19:59 36.8 05/07/21 18:00 89 24 157/82 (107) 97 Nasal Cannula 2.00 05/07/21 17:00 91 22 216/127 (156) 97 Nasal Cannula 2.00 05/07/21 16:21 36.4 05/07/21 16:00 92 Nasal Cannula 2.00 05/07/21 16:00 93 19 207/101 (136) 95 Nasal Cannula 2.00 05/07/21 15:00 90 25 193/148 (163) 97 Nasal Cannula 2.00 05/07/21 14:00 91 28 194/110 (138) Nasal Cannula 2.00 05/07/21 13:00 97 05/07/21 13:00 96 12 161/72 (101) 87 Nasal Cannula 2.00 05/07/21 12:00 36.6 05/07/21 12:00 92 Nasal Cannula 2.00 05/07/21 12:00 101 16 170/88 (115) 94 Nasal Cannula 2.00 05/07/21 11:00 101 20 179/82 (114) 94 Nasal Cannula 2.00 05/07/21 10:00 100 4 171/145 (154) 91 Nasal Cannula 2.00 05/07/21 09:00 103 25 167/86 (113) 95 Nasal Cannula 2.00 05/07/21 08:00 101 20 195/110 (138) 92 Nasal Cannula 2.00 05/07/21 08:00 92 Nasal Cannula 2.00 05/07/21 07:52 36.5 I & O 05/08/21 06:59 Intake Total 3610 ml Output Total 6050 ml Balance -2440 ml Capillary Refill : Less Than 3 Seconds General Appearance: No Apparent Distress, WD/WN HEENT: PERRL/EOMI Neck: Non Tender, Supple Respiratory: Chest Non Tender, Lungs Clear, Normal Breath Sounds, No Accessory Muscle Use, No Respiratory Distress Cardiovascular: Regular Rate, Rhythm, No Gallop, No JVD, Normal Peripheral Pulses Gastrointestinal: normal bowel sounds, non tender, soft Extremity: Normal Capillary Refill, Normal Inspection, Non Tender, Pedal Edema (1+ pitting) Neurologic/Psychiatric: Alert, Oriented x3, No Motor/Sensory Deficits, Normal Mood/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, 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 Tested Skin: Warm/Dry, Other (scrotal erythema and edema less, left groin wound with wound vac) Lymphatic: No Adenopathy Results Lab Laboratory Tests 05/07/21 10:45: Glucometer 302H 05/07/21 15:35: Glucometer 292H 05/07/21 20:24: Glucometer 214H 05/08/21 04:40: White Blood Count 8.5, Red Blood Count 4.98, Hemoglobin 14.8, Hematocrit 44, Mean Corpuscular Volume 89, Mean Corpuscular Hemoglobin 30, Mean Corpuscular Hemoglobin Concent 33, Red Cell Distribution Width 12.6, Platelet Count 219, Mean Platelet Volume 10.0, Immature Granulocyte % (Auto) 1, Neutrophils (%) (Auto) 71, Lymphocytes (%) (Auto) 14, Monocytes (%) (Auto) 11, Eosinophils (%) (Auto) 3, Basophils (%) (Auto) 1, Neutrophils # (Auto) 6.0, Lymphocytes # (Auto) 1.2, Monocytes # (Auto) 0.9, Eosinophils # (Auto) 0.2, Basophils # (Auto) 0.0, Immature Granulocyte # (Auto) 0.1, Sodium Level 137, Potassium Level 4.0, Chloride Level 103, Carbon Dioxide Level 21, Anion Gap 13, Blood Urea Nitrogen 12, Creatinine 0.86, Estimat Glomerular Filtration Rate 92, BUN/Creatinine Ratio 14, Glucose Level 267H, Calcium Level 9.1, Corrected Calcium 9.7, Phosphorus Level 3.6, Magnesium Level 1.8, Total Bilirubin 0.4, Aspartate Amino Transf (AST/SGOT) 21, Alanine Aminotransferase (ALT/SGPT) 32, Alkaline Phosphatase 157H , Total Protein 6.5, Albumin 3.3 Microbiology 05/05/21 Gram Stain - Final, Resulted 05/05/21 Anaerobic Culture - Preliminary, Resulted Peptostreptococcus anaerobius 05/05/21 Surgical Culture - Preliminary, Resulted Strep agalactiae Group B See Comments 05/05/21 Fungal Culture 1 - Preliminary, Resulted 05/05/21 Blood Culture - Preliminary, Resulted No growth Assessment/Plan Assessment/Plan Admission Diagonsis Juanjo Gangrene Assessment/Plan Juanjo Gangrene Hx of stroke with anticoagulation HTN Diabetes 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 -Scrotal erythema and edema significantly improved from yesterday -Continue wound care will have VAC placed today -WBC 8.5, slightly elevated from 6.5 yesterday -continue abx Hx of stroke with anticoagulation therapy -Platelets infused yesterday due to antiplatelet, plavix on hold HTN -Will monitor with help of hospitalist, appreciate their assistance Diabetes -SSI, tight glucose control Tobacco, Methamphetamine and Marijuana abuse -Discussed importance of cessation Obesity FEDERICO SILVER DO 05/08/21 1440: Subjective Subjective/Events-last exam Pain controlled at groin. Having pain in left foot. Swelling and erythema continues to improve. No new complaints. Denies n/v fever sweats chills shortness of breath or chest pain. 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 Tested Skin: Warm/Dry, Other (scrotal erythema and edema less, left groin wound with wound vac) Lymphatic: No Adenopathy Assessment/Plan Assessment/Plan Assessment/Plan Juanjo Gangrene Hx of stroke with antiplatelet HTN Diabetes 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 -Scrotal erythema and edema significantly improved from yesterday -Continue wound care will have VAC placed yesterday -WBC normal -continue abx Hx of stroke with anticoagulation therapy -Platelets infused yesterday due to antiplatelet, plavix restarted HTN -Will monitor with help of hospitalist, appreciate their assistance Diabetes -SSI, tight glucose control Tobacco, Methamphetamine and Marijuana abuse -Discussed importance of cessation Obesity Supervisory-Addendum Brief Verification & Attestation Participated in pt care: history, MDM, physical Personally performed: exam, history, MDM, supervision of care Care discussed with: Medical Student Procedures: n/a Results interpretation: Verified all documentation Verification and Attestation of Medical Student E/M Service A medical student performed and documented this service in my presence. I reviewed and verified all information documented by the medical student and made modifications to such information, when appropriate. I personally performed the physical exam and medical decision making. Federico Silver, May 08, 2021,14:40 BENJAMÍN SEARS MED STUDENT May 08, 2021 07:05 FEDERICO SILVER DO May 08, 2021 14:40
[2021-05-08 08:00] VITALS: BP 131/60
[2021-05-08] MEDS: lisINopril 20 MG (PRINIVIL) TABLET PO SCH (10:05)
[2021-05-08] MEDS: PIPERACILLIN/TAZO 4.5 GM/NS 100 ML IV SCH ×4 (10:08→17:57)
[2021-05-08] MEDS ORDERED: TROUGH ORDER-PHARMACY XX NR (13:00)
[2021-05-08 21:04] VITALS: BP 134/82
[2021-05-09] VITALS (7 sets, daily range): BP systolic 133–171; BP diastolic 67–86
[2021-05-09] MEDS: PIPERACILLIN/TAZO 4.5 GM/NS 100 ML IV SCH ×6 (00:43→16:56)
[2021-05-09] MEDS: LACTATED RINGERS 1,000 ML IV SCH ×2 (00:45→17:03)
[2021-05-09 04:36] LABS: BASOPHILS # (AUTO) 0.1 10^3/uL (0.0-0.1); BASOPHILS % (AUTO) 1 % (0-10); EOSINOPHILS # (AUTO) 0.2 10^3/uL (0.0-0.3); EOSINOPHILS % (AUTO) 2 % (0-10); HEMATOCRIT 44 % (40-54); HEMOGLOBIN 14.8 g/dL (13.3-17.7); LYMPHOCYTES # (AUTO) 1.4 10^3/uL (1.0-4.0); LYMPHOCYTES % (AUTO) 15 % (12-44); MEAN CORPUSCULAR HEMOGLOBIN 30 pg (25-34); MEAN CORPUSCULAR HGB CONC 34 g/dL (32-36); MEAN CORPUSCULAR VOLUME 89 fL (80-99); MONOCYTES # (AUTO) 0.8 10^3/uL (0.0-1.0); MONOCYTES % (AUTO) 9 % (0-12); NEUTROPHILS # (AUTO) 6.8 10^3/uL (1.8-7.8); NEUTROPHILS % (AUTO) 73 % (42-75); PLATELET COUNT 257 10^3/uL (130-400); WHITE BLOOD COUNT 9.3 10^3/uL (4.3-11.0)
[2021-05-09 04:51] LABS: ALBUMIN 3.4 GM/DL (3.2-4.5)
[2021-05-09 04:52] LABS: CALCIUM 9.8 MG/DL (8.5-10.1)
[2021-05-09 04:53] LABS: TOTAL PROTEIN 6.6 GM/DL (6.4-8.2)
[2021-05-09 04:55] LABS: BILIRUBIN,TOTAL 0.3 MG/DL (0.1-1.0)
[2021-05-09 04:57] LABS: CREATININE SERUM 1.01 MG/DL (0.60-1.30)
[2021-05-09 05:00] LABS: MAGNESIUM 1.8 MG/DL (1.6-2.4)
[2021-05-09] MEDS: MAGNESIUM 1 GM/100 ML IVPB 100 ML IV SCH (05:06)
[2021-05-09] MEDS: KCL 20 MEQ TAB (K-DUR) PO SCH (05:06)
[2021-05-09] MEDS: POTASSIUM CL 10MEQ/50ML IVPB 50 ML IV SCH (05:06)
[2021-05-09] MEDS: CLINDAMYCIN 900 MG/50 ML IVPB 50 ML IV SCH ×3 (05:44→21:24)
[2021-05-09] MEDS: inSUlin ASPART (NovoLOG) 1 UNIT/0.01 ML (CHARGE PER UNIT) SC SCH ×4 (05:45→21:24)
[2021-05-09] MEDS: CLOPIDOGREL 75 MG (PLAVIX) TABLET PO SCH (09:47)
[2021-05-09] MEDS: lisINopril 20 MG (PRINIVIL) TABLET PO SCH (09:47)
--- NOTE | 2021-05-09 11:13 | Progress Note - Surgery ---
ANUSHA BUCKNER 05/09/21 1113: Subjective Time Seen by a Provider: 10:00 Subjective/Events-last exam Pt reports that his pain in the left groin is better then yesterday, but still very painful to palpation. He tolerates pain well, wound nurse noted that the wound is healing well. There is some redness and white pus around the pens, and the dimensions of the wound in the left groin is 7X3X4.3 Review of Systems General: No Chills, No Appetite Pulmonary: No Dyspnea, No Pleuritic Chest Pain Cardiovascular: No: Chest Pain, Palpitations Gastrointestinal: Abdominal Pain (LLQ pain upon palpation ), Constipation (doesn't remember his last bowel movement ); No: Nausea, Vomiting Objective Exam Vital Signs Date Time Temp Pulse Resp B/P (MAP) Pulse Ox O2 Delivery O2 Flow Rate FiO2 05/09/21 08:00 36.9 91 20 167/75 (105) 93 Room Air 05/09/21 08:00 94 Room Air 05/09/21 04:21 36.4 97 133/78 (96) 92 Room Air 05/09/21 04:20 99 133/78 (96) 94 Room Air 05/09/21 04:00 94 Room Air 05/09/21 00:00 36.8 85 156/86 (109) 94 Room Air 05/09/21 00:00 94 Room Air 05/08/21 21:04 98 134/82 (99) 90 Nasal Cannula 2.00 05/08/21 20:00 94 Room Air 05/08/21 19:49 36.6 05/08/21 16:53 92 Room Air 05/08/21 16:26 36.8 05/08/21 12:20 36.8 05/08/21 12:00 101 Nasal Cannula 2.00 05/08/21 11:47 92 Nasal Cannula 2.00 I & O 05/09/21 07:00 Intake Total 3745 ml Output Total 4600 ml Balance -855 ml Capillary Refill : Less Than 3 Seconds General Appearance: No Apparent Distress, WD/WN HEENT: PERRL/EOMI, Normal ENT Inspection Neck: Non Tender, Supple Respiratory: Chest Non Tender, No Accessory Muscle Use, No Respiratory Distress Cardiovascular: Regular Rate, Rhythm, No JVD Gastrointestinal: non tender, soft Extremity: Normal Capillary Refill, Normal Inspection, Non Tender, Pedal Edema (1+ pitting) Neurologic/Psychiatric: Alert, Oriented x3, No Motor/Sensory Deficits, Normal Mood/Affect, cold food packer II-XII Norm as Tested Skin: Warm/Dry, Other (scrotal erythema and edema less, left groin wound with wound vac) Lymphatic: No Adenopathy Results Lab Laboratory Tests 05/08/21 16:13: Glucometer 282H 05/08/21 20:27: Glucometer 220H 05/09/21 04:29: White Blood Count 9.3, Red Blood Count 4.96, Hemoglobin 14.8, Hematocrit 44, Me an Corpuscular Volume 89, Mean Corpuscular Hemoglobin 30, Mean Corpuscular Hemoglobin Concent 34, Red Cell Distribution Width 12.5, Platelet Count 257, Mean Platelet Volume 10.0, Immature Granulocyte % (Auto) 1, Neutrophils (%) (Auto) 73, Lymphocytes (%) (Auto) 15, Monocytes (%) (Auto) 9, Eosinophils (%) (Auto) 2, Basophils (%) (Auto) 1, Neutrophils # (Auto) 6.8, Lymphocytes # (Auto) 1.4, Monocytes # (Auto) 0.8, Eosinophils # (Auto) 0.2, Basophils # (Auto) 0.1, Immature Granulocyte # (Auto) 0.1, Sodium Level 135, Potassium Level 4.0, Chloride Level 99, Carbon Dioxide Level 24, Anion Gap 12, Blood Urea Nitrogen 13, Creatinine 1.01, Estimat Glomerular Filtration Rate 77, BUN/Creatinine Ratio 13, Glucose Level 414*H, Calcium Level 9.8, Corrected Calcium 10.3H, Phosphorus Level 4.0, Magnesium Level 1.8, Total Bilirubin 0.3, Aspartate Amino Transf (AST/SGOT) 16, Alanine Aminotransferase (ALT/SGPT) 32, Alkaline Phosphatase 161H , Total Protein 6.6, Albumin 3.4 Microbiology 05/05/21 Gram Stain - Final, Resulted 05/05/21 Anaerobic Culture - Preliminary, Resulted Peptostreptococcus anaerobius 05/05/21 Surgical Culture - Final, Resulted Strep agalactiae Group B See Comments 05/05/21 Fungal Culture 1 - Preliminary, Resulted 05/05/21 Blood Culture - Preliminary, Resulted No growth Assessment/Plan Assessment/Plan Assessment/Plan Juanjo Gangrene Hx of stroke with antiplatelet HTN Diabetes 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 -Scrotal erythema and edema significantly improved from yesterday, redness and pus around penis, current dimensions of left groin 7X3X4.3 -Continue wound care will have VAC placed yesterday -WBC normal -continue abx Hx of stroke with anticoagulation therapy -Platelets infused yesterday due to antiplatelet, plavix restarted HTN -Will monitor with help of hospitalist, appreciate their assistance Diabetes -SSI, current glucose of 414 so tight glucose control recommended Tobacco, Methamphetamine and Marijuana abuse -Discussed importance of cessation Obesity FEDERICO SILVER DO 05/09/212154: Subjective Subjective/Events-last exam Patient had wound VAC change today. Patient states is feeling little better since having wound VAC changed. Patient upset about his truck getting wrapped yesterday as his family was driving back home yesterday from visiting. Patient denies any nausea vomiting fever sweats chills shortness of breath or chest pain at this time. Objective Exam General Appearance: No Apparent Distress, WD/WN HEENT: PERRL/EOMI, Normal ENT Inspection Neck: Non Tender, Supple Respiratory: Chest Non Tender, No Accessory Muscle Use, No Respiratory Distress Cardiovascular: Regular Rate, Rhythm, No JVD Gastrointestinal: non tender, soft Neurologic/Psychiatric: Alert, Oriented x3, No Motor/Sensory Deficits, Normal Mood/Affect, cold food packer II-XII Norm as Tested Skin: Warm/Dry, Other (scrotal erythema and edema less, left groin wound with wound vac) Lymphatic: No Adenopathy Assessment/Plan Assessment/Plan Assessment/Plan Juanjo Gangrene s/p debridement left groin Hx of stroke with antiplatelet HTN Diabetes 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 -Continue wound care will have VAC changed today by wound care nurse. -WBC normal -continue abx has possible yeast will start diflucan Hx of stroke with anticoagulation therapy -Platelets infused due to antiplatelet at time of surgery, plavix restarted HTN -Will monitor with help of hospitalist, appreciate their assistance Diabetes -SSI, sugars still elevated Tobacco, Methamphetamine and Marijuana abuse -Discussed importance of cessation Obesity Supervisory-Addendum Brief Verification & Attestation Participated in pt care: history, MDM, physical Personally performed: exam, history, MDM, supervision of care Care discussed with: Medical Student Procedures: n/a Results interpretation: Verified all documentation Verification and Attestation of Medical Student E/M Service A medical student performed and documented this service in my presence. I reviewed and verified all information documented by the medical student and made modifications to such information, when appropriate. I personally performed the physical exam and medical decision making. Federico Silver, May 09, 2021,21:55 ANUSHA BUCKNER May 09, 2021 11:13 FEDERICO SILVER DO May 09, 2021 21:55
[2021-05-09] MEDS: FLUCONAZOLE 200 MG/100 ML 100 ML IV SCH (14:08)
[2021-05-09] MEDS ORDERED: PANTOPRAZOLE 40 MG (PROTONIX) TAB PO ONE (22:15)
[2021-05-10] VITALS (7 sets, daily range): BP systolic 141–185; BP diastolic 72–89
[2021-05-10] MEDS: hydrALAZINE (APESOLINE) 20 MG/ML VIAL IV PRN (00:11)
[2021-05-10] MEDS: PIPERACILLIN/TAZO 4.5 GM/NS 100 ML IV SCH ×8 (00:11→22:17)
[2021-05-10] MEDS: CLINDAMYCIN 900 MG/50 ML IVPB 50 ML IV SCH ×2 (04:48→13:49)
[2021-05-10 05:04] LABS: BASOPHILS # (AUTO) 0.1 10^3/uL (0.0-0.1); BASOPHILS % (AUTO) 1 % (0-10); EOSINOPHILS # (AUTO) 0.3 10^3/uL (0.0-0.3); EOSINOPHILS % (AUTO) 3 % (0-10); HEMATOCRIT 45 % (40-54); LYMPHOCYTES # (AUTO) 1.7 10^3/uL (1.0-4.0); LYMPHOCYTES % (AUTO) 17 % (12-44); MEAN CORPUSCULAR HEMOGLOBIN 29 pg (25-34); MEAN CORPUSCULAR HGB CONC 34 g/dL (32-36); MEAN CORPUSCULAR VOLUME 88 fL (80-99); MEAN PLATELET VOLUME 9.8 fL (9.0-12.2); MONOCYTES # (AUTO) 0.9 10^3/uL (0.0-1.0); MONOCYTES % (AUTO) 9 % (0-12); NEUTROPHILS # (AUTO) 6.7 10^3/uL (1.8-7.8); NEUTROPHILS % (AUTO) 69 % (42-75); PLATELET COUNT 262 10^3/uL (130-400); WHITE BLOOD COUNT 9.8 10^3/uL (4.3-11.0)
[2021-05-10 05:13] LABS: ALBUMIN 3.5 GM/DL (3.2-4.5); POTASSIUM 3.9 MMOL/L (3.6-5.0)
[2021-05-10 05:15] LABS: CALCIUM 9.7 MG/DL (8.5-10.1)
[2021-05-10 05:16] LABS: TOTAL PROTEIN 6.8 GM/DL (6.4-8.2)
[2021-05-10 05:17] LABS: BILIRUBIN,TOTAL 0.4 MG/DL (0.1-1.0)
[2021-05-10 05:19] LABS: PHOSPHORUS 4.2 MG/DL (2.3-4.7)
[2021-05-10 05:20] LABS: CREATININE SERUM 0.9 MG/DL (0.60-1.30)
[2021-05-10 05:22] LABS: MAGNESIUM 1.6 MG/DL (1.6-2.4)
[2021-05-10] MEDS: KCL 20 MEQ TAB (K-DUR) PO SCH (05:26)
[2021-05-10] MEDS: POTASSIUM CL 10MEQ/50ML IVPB 50 ML IV SCH (05:26)
[2021-05-10] MEDS: MAGNESIUM 1 GM/100 ML IVPB 100 ML IV SCH ×3 (05:36→06:56)
[2021-05-10] MEDS: inSUlin ASPART (NovoLOG) 1 UNIT/0.01 ML (CHARGE PER UNIT) SC SCH ×4 (05:40→21:11)
--- NOTE | 2021-05-10 08:32 | Progress Note - Surgery ---
BENJAMÍN SEARS A MED STUDENT 05/10/21 0832: Subjective Date Seen by a Provider: May 10, 2021 Time Seen by a Provider: 07:50 Subjective/Events-last exam Pt lying in bed this morning, easy to wake. Pt reports he feels better today than yesterday. Denies pain in his groin. Pt denies N/V/D, abdominal pain, SOA, chest pain, fever or chills. Pt does report he has not had BM for a few days, but does not feel uncomfortable. Review of Systems General: No Chills, No Fatigue HEENT: No Head Aches, No Visual Changes Pulmonary: No Dyspnea, No Cough Cardiovascular: No: Chest Pain, Palpitations Gastrointestinal: Constipation; No: Nausea, Vomiting, Abdominal Pain, Diarrhea Genitourinary: No Dysuria, No Frequency Neurological: No: Weakness, Numbness Objective Exam Vital Signs Date Time Temp Pulse Resp B/P (MAP) Pulse Ox O2 Delivery O2 Flow Rate FiO2 05/10/21 08:00 37.0 97 20 154/75 (101) 92 Room Air 05/10/21 04:32 36.8 91 17 141/85 (103) 92 Room Air 05/10/21 00:26 36.6 92 20 185/89 (121) 93 Room Air 05/09/21 20:00 36.8 99 22 152/67 (95) 90 Room Air 05/09/21 20:00 94 Room Air 05/09/21 16:00 37.2 89 22 170/85 (113) 94 Room Air 05/09/21 12:00 36.7 90 18 171/77 (108) 93 Room Air I & O0 05/10/21 07:00 Intake Total 3260 ml Output Total 4950 ml Balance -1690 ml Capillary Refill : Less Than 3 Seconds General Appearance: No Apparent Distress, WD/WN HEENT: PERRL/EOMI, Normal ENT Inspection Neck: Non Tender, Supple Respiratory: Chest Non Tender, Lungs Clear, Normal Breath Sounds, No Accessory Muscle Use, No Respiratory Distress Cardiovascular: Regular Rate, Rhythm, No Gallop, No JVD, No Murmur Gastrointestinal: normal bowel sounds, non tender, soft Extremity: Normal Capillary Refill, Normal Inspection, Non Tender, Pedal Edema (1+ pitting) Neurologic/Psychiatric: Alert, Oriented x3, No Motor/Sensory Deficits, Normal Mood/Affect, protective signal operations 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 II-XII Norm as Tested Skin: Normal Color, Warm/Dry, Other (scrotal erythema and edema improved, left groin wound with wound vac) Lymphatic: No Adenopathy Results Lab Laboratory Tests 05/09/21 11:22: Glucometer 326H 05/09/21 16:26: Glucometer 337H 05/09/21 20:55: Glucometer 392H 05/10/21 04:50: White Blood Count 9.8, Red Blood Count 5.10, Hemoglobin 15.0, Hematocrit 45, Mean Corpuscular Volume 88, Mean Corpuscular Hemoglobin 29, Mean Corpuscular Hemoglobin Concent 34, Red Cell Distribution Width 12.2, Platelet Count 262, Mean Platelet Volume 9.8, Immature Granulocyte % (Auto) 1, Neutrophils (%) (Auto) 69, Lymphocytes (%) (Auto) 17, Monocytes (%) (Auto) 9, Eosinophils (%) (Auto) 3, Basophils (%) (Auto) 1, Neutrophils # (Auto) 6.7, Lymphocytes # (Auto) 1.7, Monocytes # (Auto) 0.9, Eosinophils # (Auto) 0.3, Basophils # (Auto) 0.1, Immature Granulocyte # (Auto) 0.1, Sodium Level 138, Potassium Level 3.9, Chloride Level 101, Carbon Dioxide Level 23, Anion Gap 14, Blood Urea Nitrogen 15, Creatinine 0.90, Estimat Glomerular Filtration Rate 88, BUN/Creatinine Ratio 17, Glucose Level 305H, Calcium Level 9.7, Corrected Calcium 10.1, Phosphorus Level 4.2, Magnesium Level 1.6, Total Bilirubin 0.4, Aspartate Amino Transf (AST/SGOT) 18, Alanine Aminotransferase (ALT/SGPT) 32, Alkaline Phosphatase 174H , Total Protein 6.8, Albumin 3.5 Microbiology 05/05/21 Gram Stain - Final, Resulted 05/05/21 Anaerobic Culture - Final, Resulted Peptostreptococcus anaerobius Prevotella species Anaerobic Gram Negative Flash See Comments 05/05/21 Surgical Culture - Final, Resulted Strep agalactiae Group B See Comments 05/05/21 Fungal Culture 1 - Preliminary, Resulted 05/05/21 Blood Culture - Preliminary, Resulted No growth Assessment/Plan Assessment/Plan Admission Diagonsis Juanjo gangrene Assessment/Plan Juanjo Gangrene s/p debridement left groin Hx of stroke with antiplatelet HTN Diabetes 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 -Continue wound care, currently has wound vac placed. -WBC normal -Diflucan started for possible yeast infection Hx of stroke with anticoagulation therapy -Platelets infused due to antiplatelet at time of surgery, plavix restarted HTN -Will monitor with help of hospitalist, appreciate their assistance Diabetes -SSI, sugars still elevated, but improved Tobacco, Methamphetamine and Marijuana abuse -Discussed importance of cessation Obesity PHILIP SILVER DO 05/10/21 1253: Subjective Subjective/Events-last exam Feeling well. Pain controlled. Patient blood sugar still high. Denies any nausea vomiting fever sweats chills shortness of breath or chest pain. Wound VAC in place left groin. Objective Exam General Appearance: No Apparent Distress, WD/WN HEENT: PERRL/EOMI, Normal ENT Inspection Neck: Non Tender, Supple Respiratory: Chest Non Tender, No Accessory Muscle Use, No Respiratory Distress Cardiovascular: Regular Rate, Rhythm, No JVD Gastrointestinal: non tender, soft Extremity: Normal Capillary Refill, Normal Inspection, Non Tender, Pedal Edema (1+ pitting) Neurologic/Psychiatric: Alert, Oriented x3, No Motor/Sensory Deficits, Normal Mood/Affect Skin: Normal Color, Warm/Dry, Other (scrotal erythema and edema improved, left groin wound with wound vac) Lymphatic: No Adenopathy Assessment/Plan Assessment/Plan Assessment/Plan Juanjo Gangrene s/p debridement left groin Hx of stroke with antiplatelet HTN Diabetes 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 -Continue wound care, currently has wound vac placed. -WBC normal -Diflucan started for possible yeast infection Hx of stroke with anticoagulation therapy -Platelets infused due to antiplatelet at time of surgery, plavix restarted HTN -Will monitor with help of hospitalist, appreciate their assistance Diabetes -SSI, sugars still elevated, but improved Tobacco, Methamphetamine and Marijuana abuse -Discussed importance of cessation Obesity Supervisory-Addendum Brief Verification & Attestation Participated in pt care: history, MDM, physical Personally performed: exam, history, MDM, supervision of care Care discussed with: Medical Student Procedures: n/a Results interpretation: Verified all documentation Verification and Attestation of Medical Student E/M Service A medical student performed and documented this service in my presence. I reviewed and verified all information documented by the medical student and made modifications to such information, when appropriate. I personally performed the physical exam and medical decision making. Philip Silver, May 10, 2021,12:53 BENJAMÍN SEARS MED STUDENT May 10, 2021 08:32 PHILIP SILVER DO May 10, 2021 12:53
[2021-05-10] MEDS: CLOPIDOGREL 75 MG (PLAVIX) TABLET PO SCH (08:51)
[2021-05-10] MEDS: lisINopril 20 MG (PRINIVIL) TABLET PO SCH (08:51)
[2021-05-10] MEDS: PANTOPRAZOLE 40 MG (PROTONIX) TAB PO SCH (08:51)
[2021-05-10] MEDS: LACTATED RINGERS 1,000 ML IV SCH ×2 (12:23→22:17)
[2021-05-10] MEDS: FLUCONAZOLE 200 MG/100 ML 100 ML IV SCH (13:49)
[2021-05-11 03:44] VITALS: BP 160/82
[2021-05-11 05:02] LABS: BASOPHILS # (AUTO) 0.1 10^3/uL (0.0-0.1); BASOPHILS % (AUTO) 1 % (0-10); EOSINOPHILS # (AUTO) 0.3 10^3/uL (0.0-0.3); EOSINOPHILS % (AUTO) 3 % (0-10); HEMATOCRIT 45 % (40-54); HEMOGLOBIN 15.2 g/dL (13.3-17.7); LYMPHOCYTES % (AUTO) 20 % (12-44); MEAN CORPUSCULAR HEMOGLOBIN 30 pg (25-34); MEAN CORPUSCULAR HGB CONC 34 g/dL (32-36); MEAN CORPUSCULAR VOLUME 88 fL (80-99); MEAN PLATELET VOLUME 9.8 fL (9.0-12.2); MONOCYTES # (AUTO) 0.8 10^3/uL (0.0-1.0); MONOCYTES % (AUTO) 8 % (0-12); NEUTROPHILS # (AUTO) 6.7 10^3/uL (1.8-7.8); NEUTROPHILS % (AUTO) 66 % (42-75); PLATELET COUNT 292 10^3/uL (130-400); WHITE BLOOD COUNT 10.1 10^3/uL (4.3-11.0)
[2021-05-11 05:14] LABS: ALBUMIN 3.7 GM/DL (3.2-4.5)
[2021-05-11 05:16] LABS: CALCIUM 9.7 MG/DL (8.5-10.1)
[2021-05-11 05:17] LABS: TOTAL PROTEIN 6.9 GM/DL (6.4-8.2)
[2021-05-11 05:19] LABS: BILIRUBIN,TOTAL 0.5 MG/DL (0.1-1.0)
[2021-05-11] MEDS: KCL 20 MEQ TAB (K-DUR) PO SCH (05:19)
[2021-05-11] MEDS: POTASSIUM CL 10MEQ/50ML IVPB 50 ML IV SCH (05:19)
[2021-05-11 05:20] LABS: PHOSPHORUS 4.1 MG/DL (2.3-4.7)
[2021-05-11 05:21] LABS: CREATININE SERUM 1.03 MG/DL (0.60-1.30)
[2021-05-11 05:23] LABS: MAGNESIUM 1.7 MG/DL (1.6-2.4)
[2021-05-11] MEDS ORDERED: MAGNESIUM 1 GM/100 ML IVPB 100 ML IV ONE ×2 (05:30→07:00)
[2021-05-11] MEDS: MAGNESIUM 1 GM/100 ML IVPB 100 ML IV SCH (05:31)
[2021-05-11] MEDS: inSUlin ASPART (NovoLOG) 1 UNIT/0.01 ML (CHARGE PER UNIT) SC SCH ×4 (06:10→21:50)
--- NOTE | 2021-05-11 08:28 | Progress Note - Surgery ---
BENJAMÍN SEARS A MED STUDENT 05/11/21 0828: Subjective Date Seen by a Provider: May 11, 2021 Time Seen by a Provider: 07:55 Subjective/Events-last exam Pt asleep in bed this morning, but easy to wake. Pt reports he is feeling better this morning and his groin pain is 2/10. Denies N/V/D, fever, chills, chest pain, SOA. Pt reports he still has not had a BM, but does not feel uncomfortable d/t this. Review of Systems General: No Chills HEENT: No Head Aches, No Visual Changes Pulmonary: No Dyspnea, No Cough Cardiovascular: No: Chest Pain, Palpitations Gastrointestinal: Constipation; No: Nausea, Vomiting, Abdominal Pain, Diarrhea Genitourinary: No Dysuria, No Frequency Neurological: No: Weakness, Numbness Objective Exam Vital Signs Date Time Temp Pulse Resp B/P (MAP) Pulse Ox O2 Delivery O2 Flow Rate FiO2 05/11/21 03:44 36.4 80 18 160/82 (108) 95 Room Air 05/10/21 23:22 36.6 87 20 145/74 (97) 97 Room Air 05/10/21 19:53 94 Room Air 05/10/21 19:50 36.8 91 18 170/88 (115) 96 Room Air 05/10/21 16:00 36.2 89 18 148/72 (97) 92 Room Air 05/10/21 11:30 37.0 87 16 164/81 (108) 94 Room Air 05/10/21 09:00 94 Room Air I & O 05/11/21 07:00 Intake Total 1940 ml Output Total 3785 ml Balance -1845 ml Capillary Refill : Less Than 3 Seconds General Appearance: No Apparent Distress, WD/WN HEENT: PERRL/EOMI, Normal ENT Inspection Neck: Non Tender, Supple Respiratory: Chest Non Tender, Lungs Clear, Normal Breath Sounds, No Accessory Muscle Use, No Respiratory Distress Cardiovascular: Regular Rate, Rhythm, No JVD Gastrointestinal: normal bowel sounds, non tender, soft Extremity: Normal Capillary Refill, Normal Inspection, Non Tender, Pedal Edema (1+ pitting) Neurologic/Psychiatric: Alert, Oriented x3, No Motor/Sensory Deficits, Normal Mood/Affect Skin: Normal Color, Warm/Dry, Other (scrotal erythema and edema improved, left groin wound with wound vac) Lymphatic: No Adenopathy Results Lab Laboratory Tests 05/10/21 11:29: Glucometer 318H 05/10/21 15:57: Glucometer 332H 05/10/21 20:53: Glucometer 365H 05/11/21 04:52: White Blood Count 10.1, Red Blood Count 5.13, Hemoglobin 15.2, Hematocrit 45, Mean Corpuscular Volume 88, Mean Corpuscular Hemoglobin 30, Mean Corpuscular Hemoglobin Concent 34, Red Cell Distribution Width 12.3, Platelet Count 292, Mean Platelet Volume 9.8, Immature Granulocyte % (Auto) 2, Neutrophils (%) (Auto) 66, Lymphocytes (%) (Auto) 20, Monocytes (%) (Auto) 8, Eosinophils (%) (Auto) 3, Basophils (%) (Auto) 1, Neutrophils # (Auto) 6.7, Lymphocytes # (Auto) 2.0, Monocytes # (Auto) 0.8, Eosinophils # (Auto) 0.3, Basophils # (Auto) 0.1, Immature Granulocyte # (Auto) 0.2H, Sodium Level 136, Potassium Level 4.0, Chloride Level 101, Carbon Dioxide Level 23, Anion Gap 12, Blood Urea Nitrogen 17, Creatinine 1.03, Estimat Glomerular Filtration Rate 75, BUN/Creatinine Ratio 17, Glucose Level 280H, Calcium Level 9.7, Corrected Calcium 9.9, Phosphorus Level 4.1, Magnesium Level 1.7, Total Bilirubin 0.5, Aspartate Amino Transf (AST/SGOT) 18, Alanine Aminotransferase (ALT/SGPT) 38, Alkaline Phosphatase 149H , Total Protein 6.9, Albumin 3.7 Microbiology 05/05/21 Gram Stain - Final, Resulted 05/05/21 Anaerobic Culture - Final, Resulted Peptostreptococcus anaerobius Prevotella species Anaerobic Gram Negative Flash See Comments 05/05/21 Surgical Culture - Final, Resulted Strep agalactiae Group B See Comments 05/05/21 Fungal Culture 1 - Preliminary, Resulted 05/05/21 Blood Culture - Final, Complete No growth Assessment/Plan Assessment/Plan Admission Diagonsis Juanjo gangrene Assessment/Plan Juanjo Gangrene s/p debridement left groin Hx of stroke with antiplatelet HTN Diabetes 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 -Continue wound care, currently has wound vac placed. -WBC normal -Diflucan started for possible yeast infection Hx of stroke with anticoagulation therapy -Platelets infused due to antiplatelet at time of surgery, plavix restarted HTN -Will monitor with help of hospitalist, appreciate their assistance Diabetes -SSI, sugars still elevated, but improved Tobacco, Methamphetamine and Marijuana abuse -Discussed importance of cessation Obesity PHILIP SILVER DO 05/11/21 1233: Subjective Subjective/Events-last exam Feeling good. No new complaints. Blood sugars elevated. Paitent pain controlled. Denies n/v fever sweats chills shortness of breath or chest pain. Objective Exam General Appearance: No Apparent Distress, WD/WN, Obese HEENT: PERRL/EOMI, Normal ENT Inspection Neck: Non Tender, Supple Respiratory: Chest Non Tender, No Accessory Muscle Use Cardiovascular: Regular Rate, Rhythm, No JVD Gastrointestinal: non tender, soft Extremity: Normal Capillary Refill, Normal Inspection, Non Tender, Pedal Edema (1+ pitting) Neurologic/Psychiatric: Alert, Oriented x3, No Motor/Sensory Deficits, Normal Mood/Affect Skin: Normal Color, Warm/Dry, Other (scrotal erythema and edema improved, left groin wound with wound vac) Lymphatic: No Adenopathy Assessment/Plan Assessment/Plan Assessment/Plan Juanjo Gangrene s/p debridement left groin Hx of stroke with antiplatelet HTN Diabetes 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 -Continue wound care, currently has wound vac placed. -WBC normal -Diflucan started for possible yeast infection Hx of stroke with anticoagulation therapy -Platelets infused due to antiplatelet at time of surgery, plavix restarted HTN -Will monitor with help of hospitalist, appreciate their assistance Diabetes -SSI, sugars still elevated, but improved Tobacco, Methamphetamine and Marijuana abuse -Discussed importance of cessation Obesity Work on disposition for wound care likely home soon Supervisory-Addendum Brief Verification & Attestation Participated in pt care: history, MDM, physical Personally performed: exam, history, MDM, supervision of care Care discussed with: Medical Student Procedures: n/a Results interpretation: Verified all documentation Verification and Attestation of Medical Student E/M Service A medical student performed and documented this service in my presence. I reviewed and verified all information documented by the medical student and made modifications to such information, when appropriate. I personally performed the physical exam and medical decision making. Philip Silver, May 11, 2021,12:32 BENJAMÍN SEARS MED STUDENT May 11, 2021 08:28 PHILIP SILVER DO May 11, 2021 12:33
[2021-05-11 08:35] VITALS: BP 164/82
[2021-05-11] MEDS: PANTOPRAZOLE 40 MG (PROTONIX) TAB PO SCH (08:44)
[2021-05-11] MEDS: PIPERACILLIN/TAZO 4.5 GM/NS 100 ML IV SCH ×6 (08:44→23:59)
[2021-05-11] MEDS: CLOPIDOGREL 75 MG (PLAVIX) TABLET PO SCH (08:44)
[2021-05-11] MEDS: lisINopril 20 MG (PRINIVIL) TABLET PO SCH (08:44)
[2021-05-11 11:35] VITALS: BP 163/84
[2021-05-11] MEDS ORDERED: lisINopril 20 MG (PRINIVIL) TABLET PO ONE (13:30)
--- NOTE | 2021-05-11 13:31 | Progress Note - Hospitalist ---
Subjective HPI/CC On Admission Date Seen by Provider: May 11, 2021 Time Seen by Provider: 13:27 Pt is a 56yo who presented to the ER due to a wound on his groin. He is sleeping when I entered the room and did not want to wake up. He answered very few questions and mostly just groaned and stated his body was sore and he was not ready to talk. History is obtained from the records due to this. Apparently he noticed an abscess on 05/02 and was seen in the ER in [place], [place] for that. It was draining on its own and a culture was obtained and he was prescribed Bactrim though was unable to fill it until 05/04. He did take two doses of it though. 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 I am consulted for medical management. He reports a history of DM though was unable to tell me if he is on insulin or pills. He is also quite hypertensive and nods when asked if he has this chronically. Per ER note paperwork from [place] showed last a1c was 12. Subjective/Events-last exam Pt reports doing well. Thinks his wound is healing well. No complaints. Objective Exam Vital Signs Vital Signs Date Time Temp Pulse Resp B/P (MAP) Pulse Ox O2 Delivery O2 Flow Rate FiO2 05/11/21 11:35 36.6 80 16 163/84 (110) 93 Room Air 05/08/21 21:04 2.00 Capillary Refill : Less Than 3 Seconds General Appearance: No Apparent Distress, Obese Respiratory: Lungs Clear, No Respiratory Distress Cardiovascular: Regular Rate, Rhythm, No Murmur Neurologic/Psychiatric: Alert, Oriented x3 Results/Procedures Lab Laboratory Tests 05/11/21 04:52 Patient resulted labs reviewed. Imaging: Reviewed Imaging Report Assessment/Plan Assessment and Plan Assess & Plan/Chief Complaint Sepsis due to orin's gangrene- POA s/p debridement on 05/05 management per primary Continue on IV abx Wound vac in place per surgery Poorly controlled DMII SSI for now BS have been elevated with Levemir Increased Levemir to 20 units and up to SSI C Discussed with patient importance of complaince with insulin to help with wound healing HTN Hydralzine prn BP better but consistently 160s, increase lisinopril DC IVF Illicit drug use Reports meth use DVT ppx:Lovenox when ok with surgery Critical Care Critically Ill Patient Diagnosis/Problems Diagnosis/Problems (1) Essential (primary) hypertension (2) Methamphetamine use (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
[2021-05-11] MEDS: FLUCONAZOLE 200 MG/100 ML 100 ML IV SCH (13:36)
[2021-05-11 16:28] VITALS: BP 160/78
[2021-05-11 20:38] VITALS: BP 154/85
[2021-05-12 00:13] VITALS: BP 131/92
[2021-05-12 04:17] VITALS: BP 142/69
[2021-05-12 04:53] LABS: BASOPHILS # (AUTO) 0.1 10^3/uL (0.0-0.1); BASOPHILS % (AUTO) 1 % (0-10); EOSINOPHILS # (AUTO) 0.3 10^3/uL (0.0-0.3); EOSINOPHILS % (AUTO) 3 % (0-10); HEMATOCRIT 46 % (40-54); HEMOGLOBIN 15.2 g/dL (13.3-17.7); LYMPHOCYTES # (AUTO) 2.1 10^3/uL (1.0-4.0); LYMPHOCYTES % (AUTO) 20 % (12-44); MEAN CORPUSCULAR HEMOGLOBIN 29 pg (25-34); MEAN CORPUSCULAR HGB CONC 33 g/dL (32-36); MEAN CORPUSCULAR VOLUME 88 fL (80-99); MONOCYTES # (AUTO) 0.8 10^3/uL (0.0-1.0); MONOCYTES % (AUTO) 8 % (0-12); NEUTROPHILS % (AUTO) 67 % (42-75); PLATELET COUNT 317 10^3/uL (130-400); POTASSIUM 4.1 MMOL/L (3.6-5.0); WHITE BLOOD COUNT 10.5 10^3/uL (4.3-11.0)
[2021-05-12 04:54] LABS: CALCIUM 9.8 MG/DL (8.5-10.1)
[2021-05-12 04:55] LABS: TOTAL PROTEIN 7.3 GM/DL (6.4-8.2)
[2021-05-12 04:57] LABS: BILIRUBIN,TOTAL 0.5 MG/DL (0.1-1.0)
[2021-05-12 04:58] LABS: PHOSPHORUS 3.7 MG/DL (2.3-4.7)
[2021-05-12 04:59] LABS: CREATININE SERUM 1.24 MG/DL (0.60-1.30)
[2021-05-12 05:02] LABS: MAGNESIUM 1.9 MG/DL (1.6-2.4)
[2021-05-12] MEDS: MAGNESIUM 1 GM/100 ML IVPB 100 ML IV SCH (05:15)
[2021-05-12] MEDS: POTASSIUM CL 10MEQ/50ML IVPB 50 ML IV SCH (05:16)
[2021-05-12] MEDS: KCL 20 MEQ TAB (K-DUR) PO SCH (05:16)
[2021-05-12] MEDS: inSUlin ASPART (NovoLOG) 1 UNIT/0.01 ML (CHARGE PER UNIT) SC SCH ×2 (05:27→11:45)
--- NOTE | 2021-05-12 07:40 | Progress Note - Surgery ---
MELODYKEISHABENJAMÍN A MED STUDENT 05/12/21 0740: Subjective Date Seen by a Provider: May 12, 2021 Time Seen by a Provider: 07:05 Subjective/Events-last exam Pt up in chair this morning, reports he is feeling well. Pt states he had two BM's, one last night and one this morning that were solid. Denies N/V, abdominal or groin pain, fever and chills. Pt states he is ready to be discharged. Review of Systems General: No Chills, No Fatigue HEENT: No Head Aches, No Visual Changes Pulmonary: No Dyspnea, No Cough Cardiovascular: No: Chest Pain, Palpitations Gastrointestinal: No: Nausea, Vomiting, Abdominal Pain, Diarrhea, Constipation Genitourinary: No Dysuria, No Frequency Musculoskeletal: No: neck pain, back pain Neurological: No: Weakness, Numbness Objective Exam Vital Signs Date Time Temp Pulse Resp B/P (MAP) Pulse Ox O2 Delivery O2 Flow Rate FiO2 05/12/21 04:17 36.7 83 18 142/69 (93) 95 Room Air 05/12/21 00:13 36.4 88 18 131/92 (105) 95 Room Air 05/11/21 20:38 36.7 85 18 154/85 (108) 94 Room Air 05/11/21 19:31 Room Air 05/11/21 16:28 37.0 80 18 160/78 (105) 95 Room Air 05/11/21 11:35 36.6 80 16 163/84 (110) 93 Room Air 05/11/21 08:35 36.6 86 18 164/82 (109) 94 Room Air 05/11/21 08:00 Room Air I & O 05/12/21 07:00 Intake Total 1790 ml Output Total 2675 ml Balance -885 ml Capillary Refill : Less Than 3 Seconds General Appearance: No Apparent Distress, Obese HEENT: PERRL/EOMI, Normal ENT Inspection Neck: Non Tender, Supple Respiratory: Chest Non Tender, Lungs Clear, Normal Breath Sounds, No Accessory Muscle Use, No Respiratory Distress Cardiovascular: Regular Rate, Rhythm, No Gallop, No Murmur Gastrointestinal: normal bowel sounds, non tender, soft Extremity: Normal Capillary Refill, Normal Inspection, Non Tender, Pedal Edema (1+ pitting) Neurologic/Psychiatric: Alert, Oriented x3, No Motor/Sensory Deficits, Normal Mood/Affect Skin: Normal Color, Warm/Dry, Other (scrotal erythema and edema improved, left groin wound with wound vac) Lymphatic: No Adenopathy Results Lab Laboratory Tests 05/11/21 11:44: Glucometer 265H 05/11/21 16:34: Glucometer 266H 05/11/21 20:43: Glucometer 276H 05/12/21 04:35: White Blood Count 10.5, Red Blood Count 5.22, Hemoglobin 15.2, Hematocrit 46, Mean Corpuscular Volume 88, Mean Corpuscular Hemoglobin 29, Mean Corpuscular Hemoglobin Concent 33, Red Cell Distribution Width 12.2, Platelet Count 317, Mean Platelet Volume 10.0, Immature Granulocyte % (Auto) 2, Neutrophils (%) (Auto) 67, Lymphocytes (%) (Auto) 20, Monocytes (%) (Auto) 8, Eosinophils (%) (Auto) 3, Basophils (%) (Auto) 1, Neutrophils # (Auto) 7.0, Lymphocytes # (Auto) 2.1, Monocytes # (Auto) 0.8, Eosinophils # (Auto) 0.3, Basophils # (Auto) 0.1, Immature Granulocyte # (Auto) 0.3H, Sodium Level 136, Potassium Level 4.1, Chloride Level 100, Carbon Dioxide Level 22, Anion Gap 14, Blood Urea Nitrogen 18, Creatinine 1.24, Estimat Glomerular Filtration Rate 61, BUN/Creatinine Ratio 15, Glucose Level 342H, Calcium Level 9.8, Corrected Calcium 9.8, Phosphorus Level 3.7, Magnesium Level 1.9, Total Bilirubin 0.5, Aspartate Amino Transf (AST/SGOT) 16, Alanine Aminotransferase (ALT/SGPT) 40, Alkaline Phosphatase 153H , Total Protein 7.3, Albumin 4.0 Microbiology 05/05/21 Gram Stain - Final, Resulted 05/05/21 Anaerobic Culture - Final, Resulted Peptostreptococcus anaerobius Prevotella species Anaerobic Gram Negative Flash See Comments 05/05/21 Surgical Culture - Final, Resulted Strep agalactiae Group B See Comments 05/05/21 Fungal Culture 1 - Preliminary, Resulted 05/05/21 Blood Culture - Final, Complete No growth Assessment/Plan Assessment/Plan Admission Diagonsis Juanjo Gangrene Assessment/Plan Juanjo Gangrene s/p debridement left groin Hx of stroke with antiplatelet HTN Diabetes 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 -Continue wound care, currently has wound vac placed. -WBC normal at 10.5 -Diflucan being given for possible yeast infection Hx of stroke with anticoagulation therapy -Platelets infused due to antiplatelet at time of surgery, plavix restarted HTN -Will monitor with help of hospitalist, appreciate their assistance Diabetes -SSI, sugars still elevated, but improved Tobacco, Methamphetamine and Marijuana abuse -Discussed importance of cessation Obesity Work on disposition for wound care likely home soon PHILIP SILVER DO 05/12/21 1154: Subjective Subjective/Events-last exam Wanting to go home. Feeling well. Denies n/v fever sweats chills shortness of breath or chest pain. Wound vac in place. Objective Exam General Appearance: No Apparent Distress, Obese HEENT: PERRL/EOMI, Normal ENT Inspection Neck: Non Tender, Supple Respiratory: Chest Non Tender, No Accessory Muscle Use, No Respiratory Distress Cardiovascular: Regular Rate, Rhythm Gastrointestinal: non tender, soft Extremity: Normal Capillary Refill, Normal Inspection, Non Tender Neurologic/Psychiatric: Alert, Oriented x3, No Motor/Sensory Deficits, Normal Mood/Affect Skin: Normal Color, Warm/Dry, Other (scrotal erythema and edema improved, left groin wound with wound vac) Lymphatic: No Adenopathy Assessment/Plan Assessment/Plan Assessment/Plan Juanjo Gangrene s/p debridement left groin Hx of stroke with antiplatelet HTN Diabetes 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 -Continue wound care, currently has wound vac placed. -WBC normal at 10.5 -Diflucan being given for possible yeast infection Hx of stroke with anticoagulation therapy -Platelets infused due to antiplatelet at time of surgery, plavix restarted HTN -Will monitor with help of hospitalist, appreciate their assistance Diabetes -SSI, sugars still elevated, but improved Tobacco, Methamphetamine and Marijuana abuse -Discussed importance of cessation Obesity Work on disposition for wound care likely home soon Supervisory-Addendum Brief Verification & Attestation Participated in pt care: history, MDM, physical Personally performed: exam, history, MDM, supervision of care Care discussed with: Medical Student Procedures: n/a Results interpretation: Verified all documentation Verification and Attestation of Medical Student E/M Service A medical student performed and documented this service in my presence. I reviewed and verified all information documented by the medical student and made modifications to such information, when appropriate. I personally performed the physical exam and medical decision making. Philip Silver, May 12, 2021,11:54 BENJAMÍN SEARS MED STUDENT May 12, 2021 07:40 PHILIP SILVER DO May 12, 2021 11:54
[2021-05-12 08:00] VITALS: BP 155/70
[2021-05-12] MEDS: CLOPIDOGREL 75 MG (PLAVIX) TABLET PO SCH (08:51)
[2021-05-12] MEDS: PIPERACILLIN/TAZO 4.5 GM/NS 100 ML IV SCH ×2 (08:51)
[2021-05-12] MEDS: PANTOPRAZOLE 40 MG (PROTONIX) TAB PO SCH (08:52)
[2021-05-12] MEDS ORDERED: amLODIPine 10 MG (NORVASC) TAB PO SCH (09:00)
[2021-05-12] MEDS ORDERED: lisINopril 40 MG (PRINIVIL) TABLET PO SCH (09:00)
[2021-05-12 12:00] VITALS: BP 149/77
[2021-05-12] MEDS ORDERED: inSUlin ASPART (NovoLOG) 1 UNIT/0.01 ML (CHARGE PER UNIT) SC SCH (12:00)
[2021-05-12] MEDS ORDERED: MICONAZOLE 2% POWDER (DESENEX AF) 90 GM TOP SCH (13:30)
[2021-05-12] MEDS: FLUCONAZOLE 200 MG/100 ML 100 ML IV SCH (14:59)
[2021-05-12] MEDS ORDERED: AMOX-358 PO (15:47)
--- NOTE | 2021-05-12 16:01 | Discharge Inst-Simple/Standard ---
Discharge Inst-Standard Discharge Medications New, Converted or Re-Newed RX: Transmitted to Pharmacy Patient Instructions/Follow Up Plan of Care/Instructions/FU: Follow up Dr. Bragg this week for Diabetes and Wound. Wound care set up for you keep appointment. Irrigate and Wet to dry dressing daily. Activity as Tolerated: No Discharge Diet: Regular Diet (diabetic diet) Other Inst to Patient Follow up Appt: Make appointment for [address] Bragg -this week for Diabetes and wound care. Keep appointments with wound care clinic. Instructions: No lifting greater than 10 pounds. No strenuous activity. May shower in 24 hours, no tub bath or soaking. Use incentive spirometer at home as directed. No Smoking Skin/Wound Care: Keep left groin clean and dry. Irrigate with saline and pack with 1/4 % Dakins/Kerlex and reinforce till no longer can pack. If wound care changes plan, use their instructions. Symptoms to Report: Appetite Changes, Extremity Discoloration, Numbness/Tingling, Swelling Increased, Bleeding Excessive, Eyesight Changes, Pain Increased, Urine Color Change, Constipation(Persistent), Fever over 101 degree F, Pain/Pressure in chest, Urinating Difficulty, Cough Up/Vomit Blood, Heart Beat Irreg/Pounding, Pain/Pressure in jaw, Vaginal Bleeding Increase, Cramps in feet or legs, L ightheadedness, Pain/Pressure in shoulder, Diarrhea(Persistent), Memory Changes Suddenly, Questions/Concerns, Weight gain consecutive days, Dizziness/Fainting, Nausea/Vomiting, Shortness of Breath, Weight gain over 2 pounds If questions or concerns contact your physician Or seek help at emergency department. PHILIP OROZCO DO May 12, 2021 15:52
[2021-05-12 16:40] VITALS: BP 149/77
== END 2021-05-12 16:20 | disposition home or self-care (01) | DRG 853 ==
LOC: EDUNIT# 12:57 → ER 12:59 → SDC 14:08 → ICU 16:45 → SDC 22:36 → ICU 22:36 → 4TH 05-09 04:55
PROVIDERS: ADMIT Surgery; ATTEND Surgery
PROC: 0KBM0ZZ Excision of Perineum Muscle, Open Approach (ICD-10-PCS; principal; 2021-05-05 14:40)
DX: A41.9 Sepsis, unspecified organism (principal); J96.01 Acute respiratory failure with hypoxia; Z68.42 Body mass index [BMI] 45.0-49.9, adult; N49.3 Fournier gangrene; F17.210 Nicotine dependence, cigarettes, uncomplicated; E11.65 Type 2 diabetes mellitus with hyperglycemia; G47.33 Obstructive sleep apnea (adult) (pediatric); Z86.73 Personal history of transient ischemic attack (TIA), and cerebral infarction without residual deficits; I10 Essential (primary) hypertension; E66.9 Obesity, unspecified; F15.10 Other stimulant abuse, uncomplicated; F12.10 Cannabis abuse, uncomplicated; N49.2 Inflammatory disorders of scrotum
CPT/HCPCS: 36415; 36569; 71045; 76937; 80053; 80202; 82947; 83036; 83605; 83735; 84100; 85025; 85610; 85730; 86850; 86900; 86901; 87040; 87070; 87075; 87076; 87077; 87101; 87185; 87205; 96374; 96375